=== PATIENT | female | born 1940 | race Caucasian/White ===

== ENCOUNTER 2017-06-11 16:42 | Inpatient (IN) | payer MEDICARE, OTHER ==
[2017-06-15] MEDS ORDERED: Fentanyl 100 MCG/2 ML VIAL ONE ×3 (09:18→13:28)
[2017-06-15 09:37] LABS: #Basophils 0.1 thou/uL (0.0-0.2); #Eosinphils 0.2 thou/uL (0.0-0.7); #Lymphocytes 1.3 thou/uL (1.20-3.40); #Monocytes 0.4 thou/uL (0.11-0.59); #Neutrophils 6.6 thou/uL (1.40-6.50); %Basophils 0.7 % (0.0-1.0); %Eosinophils 1.9 % (0.0-10.0); %Lymphocytes 15.4 % (21.0-51.0); Hemoglobin 13.8 g/dL (12.0-16.0); Mean Corpuscular HGB CONC 32.7 g/dL (32.0-36.0); Mean Corpuscular Hemoglobin 29.2 pg (27.0-31.0); Mean Corpuscular Volume 89.2 fl (81.0-99.0); Mean Platelet Volume 7.5 fL (7.4-10.4); Platelet Count 160 thou/uL (130-400); RBC Distribution Width 13.1 % (11.5-14.5); Red Blood Cell (RBC) Count 4.73 mill/uL (4.20-5.40); White Blood Cell (WBC) Count 8.6 thou/uL (4.8-10.8)
[2017-06-15 09:41] LABS: Anion Gap 13 mmol/L (10-20); BUN (Urea Nitrogen) 20 mg/dL (9.8-20.1); Calc. Creatinine Clearance 63 mL/min (70-130); Calcium 10.4 mg/dL (7.8-10.44); Carbon Dioxide 29 mmol/L (23-31); Chloride 101 mmol/L (98-107); Estimated GFR-MDRD 62; Glucose 166 mg/dL (83-110); Potassium 4.2 mmol/L (3.5-5.1); Sodium 139 mmol/L (136-145)
[2017-06-15] MEDS ORDERED: Midazolam HCl 2 mg/2 ml Vial ONE (09:47)
[2017-06-15] MEDS ORDERED: CEFAZOLIN/Water 2 GM/20 ML SYRINGE ONE (09:50)
[2017-06-15] MEDS ORDERED: diphenhydrAMINE 25 MG CAP PO PRN (10:30)
[2017-06-15] MEDS ORDERED: Fentanyl/Bupivacaine 250 ML in Premix Bag 1 BAG EPIDURAL SCH (10:30)
[2017-06-15] MEDS ORDERED: Promethazine HCl 25 MG SUPP PR PRN (10:30)
[2017-06-15] MEDS ORDERED: diphenhydrAMINE 50 MG/ML VIAL IM PRN (10:30)
[2017-06-15] MEDS ORDERED: diphenhydrAMINE 50 MG/ML VIAL IVP PRN (10:30)
[2017-06-15] MEDS ORDERED: Naloxone HCl 0.4 mg/ml Vial IV PRN (10:30)
[2017-06-15] MEDS ORDERED: Zolpidem Tartrate 5 MG TAB PO PRN (10:30)
[2017-06-15] MEDS ORDERED: Eucerin (Mineral Oil/Petrolatum,White) 30 gm Jar TOP PRN (10:30)
[2017-06-15] MEDS ORDERED: Naloxone HCl 0.4 mg/ml Vial IVP PRN (10:30)
[2017-06-15] MEDS ORDERED: HYDROcodone/Acetaminophen 5/325 mg Tablet PO PRN ×3 (10:30→14:54)
[2017-06-15] MEDS ORDERED: traMADol HCl 50 MG TAB PO PRN ×2 (10:30)
[2017-06-15] MEDS ORDERED: Promethazine HCl 25 MG/ML VIAL IM PRN ×3 (10:30→14:54)
[2017-06-15] MEDS ORDERED: [UNRECOGNIZED DRUG - REMARK] FS SCH (10:30)
[2017-06-15] MEDS ORDERED: Bupivacaine 0.25% HCL 30 ML VIAL ONE (10:39)
--- NOTE | 2017-06-15 13:11 | OP ---
PREOPERATIVE DIAGNOSIS: Left lower lobe carcinoma. POSTOPERATIVE DIAGNOSIS: Left lower lobe carcinoma. PROCEDURE: Left thoracotomy with superior segmentectomy left lower lobe. SURGEON: Farhat Finney M.D. ANESTHESIA: General. ESTIMATED BLOOD LOSS: Less than 100 mL. PROCEDURE IN DETAIL: After adequate anesthesia had been obtained, the patient was placed in the righ t lateral decubitus position, prepped and draped. Chest was entered through a right posterolateral m uscle sparing thoracotomy fifth intercostal space. Adhesions between the upper lobe and the chest wa ll were taken down as well as the inferior pulmonary ligament. The tumor was identified. Dissection in the major fissure was then performed dissecting out the pulmonary arterial branch to the superior segment which was divided with vascular stapler. Following this, the venous supply was encircled to the superior segment. The superior segmental bronchus was then divided with the stapler. Following this, green staple load was used to complete the segmentectomy. Following this, the lung was inflat ed in all segments and remaining lower lobe ventilated nicely. The specimen was sent for frozen sect ion and margins were clear. Two chest tubes were then placed. The L4 region was then dissected out and there was only one significant node and this was harvested. There were no nodes in the inferior pulmonary ligament or in the paraesophageal area that were visible. Following this, the ribs were r eapproximated with 2 pericostal sutures and then the muscle layers were reapproximated as well as the skin. The patient is to be taken to the recovery room in guarded condition.
[2017-06-15] MEDS ORDERED: Meperidine HCl/PF 25 MG/ML VIAL SLOW IVP PRN (13:16)
[2017-06-15] MEDS ORDERED: Promethazine HCl 25 MG/ML VIAL SLOW IVP PRN (13:16)
[2017-06-15] MEDS ORDERED: Ondansetron HCl/PF 4 MG/2 ML Vial IVP PRN ×2 (13:16→14:54)
[2017-06-15] MEDS ORDERED: Dextrose 5% in Water 1,000 ML IV PRN (13:48)
[2017-06-15] MEDS ORDERED: HumaLOG 300 UNITS/3 ML VIAL SC PRN (13:48)
[2017-06-15] MEDS ORDERED: Dextrose 50% Abboject 50 ML SYRINGE SLOW IVP PRN (13:48)
[2017-06-15] MEDS ORDERED: Fentanyl 100 MCG/2 ML VIAL SLOW IVP PRN (14:54)
[2017-06-15] MEDS ORDERED: Phenylephrine 10 MG/NS 250 ML 250 ML IVPB PRN (14:54)
[2017-06-15] MEDS ORDERED: niCARdipine HCl 25 MG in Sodium Chloride 0.9% 250 ML 240 ML IVPB PRN (14:54)
--- NOTE | 2017-06-15 15:53 | RAD ---
PORTABLE CHEST ONE VIEW 06/15/17 at 1409 hours HISTORY: Thoracotomy. FINDINGS/IMPRESSION: Comparison made to exam of 04/07/17. There are two left sided chest tubes. No definite pneumothorax is seen. There is subcutaneous emphyse ma in the left lower neck and chest wall. The right lung is clear. The heart size is stable. The aort a is tortuous. POS: OFF
[2017-06-15] MEDS: Sodium Chloride 0.9% 1,000 ML IV SCH (15:56)
[2017-06-15] MEDS ORDERED: niCARdipine 20MG In NaCl 20 MG/200 ML BAG IVPB SCH (16:00)
[2017-06-15 16:09] VITALS: BMI 26.5
[2017-06-15] MEDS ORDERED: Glycopyrrolate 0.2 MG/ML 5 ML SYRINGE ONE (17:20)
[2017-06-15] MEDS ORDERED: Lidocaine 1% PF 5 ML VIAL ONE (17:20)
[2017-06-15] MEDS ORDERED: Propofol 200 MG/20 ML VIAL ONE (17:20)
[2017-06-15] MEDS ORDERED: ePHEDrine/0.9% NaCl/PF SYRINGE 50 mg/10 ml ONE (17:20)
[2017-06-15] MEDS ORDERED: PHENYLEPHRINE-NS 100 MCG/ML 10 ML SYRINGE ONE (17:20)
[2017-06-15] MEDS: Ketorolac Tromethamine 30 MG/ML VIAL IVP SCH ×2 (17:34→17:35)
[2017-06-15] MEDS: CEFAZOLIN/Water 2 GM/20 ML SYRINGE SLOW IVP SCH (17:35)
[2017-06-15] MEDS: Ondansetron HCl/PF 4 MG/2 ML Vial IVP PRN (17:41)
[2017-06-16] MEDS: Ketorolac Tromethamine 30 MG/ML VIAL IVP SCH ×5 (01:02→23:02)
[2017-06-16] MEDS: CEFAZOLIN/Water 2 GM/20 ML SYRINGE SLOW IVP SCH ×2 (01:03→09:46)
[2017-06-16 05:06] LABS: #Lymphocytes 0.8 thou/uL (1.20-3.40); #Monocytes 0.6 thou/uL (0.11-0.59); #Neutrophils 9.8 thou/uL (1.40-6.50); %Eosinophils 0.1 % (0.0-10.0); %Lymphocytes 7.4 % (21.0-51.0); %Monocytes 4.9 % (0.0-10.0); %Neutrophils 87.6 % (42.0-75.0); Hemoglobin 11.8 g/dL (12.0-16.0); Mean Corpuscular HGB CONC 32.7 g/dL (32.0-36.0); Mean Corpuscular Hemoglobin 29.4 pg (27.0-31.0); Mean Corpuscular Volume 89.7 fl (81.0-99.0); Mean Platelet Volume 7.8 fL (7.4-10.4); Platelet Count 150 thou/uL (130-400); Red Blood Cell (RBC) Count 4.03 mill/uL (4.20-5.40); White Blood Cell (WBC) Count 11.2 thou/uL (4.8-10.8)
[2017-06-16 05:20] LABS: Anion Gap 13 mmol/L (10-20); BUN (Urea Nitrogen) 23 mg/dL (9.8-20.1); Calc. Creatinine Clearance 62 mL/min (70-130); Calcium 8.8 mg/dL (7.8-10.44); Carbon Dioxide 26 mmol/L (23-31); Chloride 102 mmol/L (98-107); Estimated GFR-MDRD 58; Glucose 169 mg/dL (83-110); Potassium 4.4 mmol/L (3.5-5.1); Sodium 137 mmol/L (136-145)
--- NOTE | 2017-06-16 08:50 | RAD ---
PORTABLE CHEST: History: Post op thoracotomy. FINDINGS: Left sided chest tubes are in place, the lower left chest tube has retracted and the side hole is pro bably outside of the chest cavity. The chest tube in the left lung apex is unchanged in position. No other interval change in the appearance of the chest. The left lung remains expanded. IMPRESSION: Interval retraction of the lower left chest tube, otherwise stable exam. POS: [facility]
--- NOTE | 2017-06-16 09:11 | CON ---
DATE OF CONSULTATION: 06/16/2017 This woman was recently identified as having a lung mass. Surgery is scheduled. It was not felt that she would tolerate a lobectomy so she has undergone segme nt resection (left superior segment of the left lower lobe). Surgery went well. She denies having p ain. I am consulting because of her presence in the Critical Care Unit because Dr. Herr follows her. PAST MEDICAL HISTORY: 1. Remarkable for chronic obstructive pulmonary disease. 2. History of thyroidectomy for toxic nodular goiter. 3. History of hypertension. 4. History of lipid disorder. 5. History of reflux disease. 6. History of vitamin D deficiency. 7. History of anxiety and depression. 8. History of a hysterectomy with a salpingo-oophorectomy. 9. History of tonsillectomy at the same time she had a thyroidectomy, I believe. FAMILY HISTORY: Positive for hypertension, heart disease, lipid disorder. SOCIAL HISTORY: She is a . She is a smoker, half pack a day, was a smoker, half pack a day in the past. She is not a daily drinker. She uses no drugs. ALLERGIES: She has no drug allergies. REVIEW OF SYSTEMS: Actually, surprisingly is negative. She denies shortness of breath. She denies chest discomfort. She says she actually feels fine. She was worried about having a lot of chest jamia n and was told that she would, but says that she has absolutely no discomfort at all which is a pleas ant surprise for her. Review of systems of systems 10-point is otherwise negative. PHYSICAL EXAMINATION: VITAL SIGNS: Heart rate 87, respiratory rate 17, oximetry is 91, blood pressure 130/57. HEENT: Pupils are equal. Sclerae is anicteric. NECK: Supple. LUNGS: Clear. HEART: Regular rhythm. S1 and S2 are normal. ABDOMEN: Soft and nontender. EXTREMITIES: Without clubbing, cyanosis, or edema. LABORATORY DATA: White count 11.2, hemoglobin 11.8, platelets 150. Sodium 137, potassium 4.4, chlor arabella 102, bicarb 26, BUN 23, creatinine 0.94, glucose 169. Intake and output is negative 269. IMPRESSION: 1. Status post resection of the superior segment of the left lower lobe. Pathology is pending. She appears to be doing well. 2. Underlying obstructive lung disease, doing well with the nebulizer treatments. She has no bronch ospasm clinically at this time and no complaints of shortness of breath. PLAN: Chest tube drainage per Surgery. We will gradually increase her out of bed time, start walkin g when Dr. Finney feels it is appropriate. This is a 50 minute consult, greater than 50% of the time was spent reviewing records, radiographs on the unit, reviewing plan of care with staff.
[2017-06-16] MEDS: Sodium Chloride 0.9% 1,000 ML IV SCH (09:46)
[2017-06-16] MEDS ORDERED: ALPRAZolam 0.25 MG TAB PO PRN (10:34)
[2017-06-16] MEDS ORDERED: metFORMIN 500 MG TAB PO SCH (10:45)
[2017-06-16] MEDS ORDERED: Levothyroxine Sodium 75 MCG TAB PO SCH (11:00)
[2017-06-16] MEDS: metFORMIN 500 MG TAB PO SCH (16:59)
[2017-06-16] MEDS: Carvedilol 6.25 MG TAB PO SCH ×2 (20:28→22:57)
[2017-06-16] MEDS: Simvastatin 5 MG TAB PO SCH (20:29)
[2017-06-16] MEDS: SODIUM CHLORIDE 0.9% EPIDURAL SCH (21:49)
[2017-06-16] MEDS: BUPIVACAINE 0.75% EPIDURAL SCH (21:49)
[2017-06-16] MEDS: FENTANYL EPIDURAL SCH (21:49)
[2017-06-16] MEDS ORDERED: Digoxin 0.5 MG/2 ML AMP SLOW IVP SCH (23:30)
[2017-06-17] MEDS ORDERED: Digoxin 0.5 MG/2 ML AMP SLOW IVP SCH (02:00)
[2017-06-17] MEDS: Ketorolac Tromethamine 30 MG/ML VIAL IVP SCH (05:58)
[2017-06-17] MEDS: Levothyroxine Sodium 75 MCG TAB PO SCH (05:59)
[2017-06-17] MEDS: Carvedilol 6.25 MG TAB PO SCH ×2 (08:22→22:27)
[2017-06-17] MEDS: Aspirin 325 MG TAB PO SCH (08:22)
[2017-06-17] MEDS: Polyethylene Glycol 3350 17 GM Packet PO SCH (08:22)
[2017-06-17] MEDS: metFORMIN 500 MG TAB PO SCH ×2 (08:22→17:40)
--- NOTE | 2017-06-17 08:24 | RAD ---
PORTABLE CHEST 1 VIEW: DATE: 06/17/17. TIME: 6:52 a.m. HISTORY: Postop thoracotomy. FINDINGS: The 2 left-sided chest tube positions are unchanged. No definite pneumothorax is seen. The inferior left chest tube side hole may be outside the chest cavity. The heart size is stable. The aorta is tortuous. There is mild pulmonary vascular congestion. POS: [facility]
[2017-06-17] MEDS ORDERED: Lisinopril 10 MG TAB PO SCH (09:00)
--- NOTE | 2017-06-17 17:50 | CON ---
DATE OF CONSULTATION: 06/17/2017. REASON FOR CONSULTATION: Atrial fibrillation, rapid ventricular response. PRIMARY ICE CREAM SCOOPER: Main Hernandez MD HISTORY OF PRESENT ILLNESS: Ms. Martinez is a very pleasant 76-year-old white female who comes to the hospital for a planned lobectomy on the left lung due to a tumor. This was performed on the 2nd and she did well postoperatively, but she developed atrial fibrillation. She was transferred to [facility]. She spontaneously converted back to sinus rhythm with some IV doses [facility] She has remained in sinus ever since. She does not have a history of atrial fibrillation. She did not feel her atrial fibrillation. Her heart rates were in the 130s. Currently, she denies any fluttering, any syncope, or presyncope. PAST MEDICAL HISTORY: 1. COPD. 2. Thyroidectomy secondary to toxic nodular goiter. 3. Hypertension. 4. Hyperlipidemia. 5. Gastroesophageal reflux disease. 6. Vitamin D deficiency. 7. Anxiety and depression. PAST SURGICAL HISTORY: 1. Hysterectomy with salpingo-oophorectomy. 2. Tonsillectomy. 3. Left lobectomy as above. FAMILY HISTORY: Early heart disease. SOCIAL HISTORY: Used to smoke half a pack a day, but she is not smoking anymore, stopped about a yea r ago. No drug or alcohol use. ALLERGIES: No known drug allergies. OUTPATIENT MEDICATIONS: 1. Metformin. 2. Lisinopril 20 mg a day. 3. Carvedilol 25 mg b.i.d. 4. Aspirin 325 a day. 5. Norvasc 5 mg every day. 6. Alprazolam. 7. Pravastatin 20 mg at bedtime. 8. Synthroid 75 mcg a day. ALLERGIES: No known drug allergies. REVIEW OF SYSTEMS: A 12-point review of systems was done and is all negative unless stated in the hi story of present illness. PHYSICAL EXAMINATION: VITAL SIGNS: Temperature 98.7, pulse 81, respiratory rate 18, saturating 97% on 2 liters, blood pres sure 152/70. GENERAL: Awake, alert, oriented x3, in no distress. HEENT: Normocephalic, atraumatic. NECK: Supple. LUNGS: Have reduced breath sounds bilaterally. On the left side, the chest tubes are in place. ABDOMEN: Soft. Positive bowel sounds. EXTREMITIES: No edema. SKIN: Warm and dry. LABORATORY WORK: Reviewed. White count of 8.6, hemoglobin of 13, hematocrit 42, platelet count 160. Chemistries, last chemistry was yesterday morning with a sodium of 137, potassium of 4.4, BUN of 23 , creatinine 0.94, calcium was 8.8. EKG was reviewed. AFib with RVR, converted to sinus earlier this morning. ASSESSMENT AND PLAN: 1. Postoperative atrial fibrillation. Most likely related to left-sided lobectomy. This is the fir st and this never happened. She is currently in sinus only on a beta jaky. We would continue the Coreg at current dose for now. She had an echocardiogram recently at the office about 2 weeks ago a nd she had normal LV function and just a slightly larger than normal left atrium. I would recommend against anticoagulation at this time given the chest tubes are in and this is most likely just relate d to the surgery. If she ever recurs in the future, she will be a candidate for full anticoagulation ; however, we will have to document this and she will need an event monitor at some time in the futur e. 2. Continue other medications otherwise. 3. Thank you for letting us to participate in the care of your patient. We will follow.
[2017-06-17] MEDS: Simvastatin 5 MG TAB PO SCH (22:27)
[2017-06-17] MEDS: Enoxaparin Sodium 40 MG/0.4 ML SYRINGE SC SCH (22:28)
[2017-06-18] MEDS: FENTANYL EPIDURAL SCH (05:26)
[2017-06-18] MEDS: BUPIVACAINE 0.75% EPIDURAL SCH (05:26)
[2017-06-18] MEDS: SODIUM CHLORIDE 0.9% EPIDURAL SCH (05:26)
[2017-06-18] MEDS: Levothyroxine Sodium 75 MCG TAB PO SCH (07:31)
[2017-06-18] MEDS: Aspirin 325 MG TAB PO SCH (08:02)
[2017-06-18] MEDS: Lisinopril 10 MG TAB PO SCH ×2 (08:02→21:17)
[2017-06-18] MEDS: metFORMIN 500 MG TAB PO SCH ×2 (08:02→16:40)
[2017-06-18] MEDS: Polyethylene Glycol 3350 17 GM Packet PO SCH (08:03)
[2017-06-18] MEDS: Carvedilol 25 MG TAB PO SCH ×2 (08:03→21:16)
--- NOTE | 2017-06-18 08:45 | RAD ---
RADIOGRAPH CHEST 1 VIEW: Date: 06-18-17 Time: 6:57 a.m. HISTORY: 76-year-old female status post left thoracotomy. COMPARISON: 06-17-17 at 6:52 a.m. FINDINGS: The two left sided chest tubes, one with distal tip near the apex and the other with distal tip overl chandler left lower lung zone, remain unchanged in position. No pneumothorax is visible. New finding of m ild blunting of the right lateral costophrenic angle suggestive of new small right pleural effusion. Prominent interstitial markings at right base. No meche pulmonary alveolar edema. IMPRESSION: 1. Two left sided chest tubes remain. 2. No pneumothorax visualized. 3. Interval development of small right pleural effusion and mild worsening of aeration at right lung base. BEATRIZ POS: [facility]
--- NOTE | 2017-06-18 15:20 | PDOC.CTH ---
Cardiology Progress Note - Subjective No new issues. Remains in sinus. - Objective Vital Signs Temp Pulse Resp BP BP Pulse Ox 06/18/17 12:35 97.7 F 77 20 139/69 94 L 06/18/17 10:02 79 132/61 06/18/17 08:02 200/83 H 06/18/17 08:00 98.8 F 90 18 200/83 H 92 L 06/18/17 06:29 94 L 06/18/17 04:30 93 L 06/18/17 04:00 98.8 F 88 18 186/78 H 93 L Weight 172 lb 6.4 oz 06/17/17 06/18/17 06/19/17 06:59 06:59 06:59 Intake Total 1674.2 1420 Output Total 170 1800 175 Balance 1504.2 -380 -175 - Physical Examination General/Neuro: alert & oriented x3, NAD Neck: no JVD present Lungs: unlabored respirations Heart: RRR Abdomen: NT/ND Extremities: other: (no edema.) - Telemetry Telemetry Rhythm: NSR - Labs Result Diagrams: 06/16/17 04:06 06/16/17 04:06 - Assessment/Plan 1. Post op afib 2. Lung Ca s/p left lobe resection. 3. Possible breast Ca PLAN: - Continue BB alone, If she recurs would start amiodarone drip and load.
[2017-06-18] MEDS: hydrALAZINE 20 MG/ML VIAL SLOW IVP PRN (17:41)
[2017-06-18] MEDS: Simvastatin 5 MG TAB PO SCH (21:15)
[2017-06-18] MEDS: Enoxaparin Sodium 40 MG/0.4 ML SYRINGE SC SCH (21:17)
[2017-06-19] MEDS: Levothyroxine Sodium 75 MCG TAB PO SCH (06:19)
[2017-06-19] MEDS ORDERED: Furosemide 40 MG TAB PO SCH (08:00)
[2017-06-19] MEDS ORDERED: Magnesium Citrate 300 ML BOT PO SCH (08:30)
[2017-06-19] MEDS ORDERED: Bisacodyl 5 MG TAB PO SCH (08:30)
--- NOTE | 2017-06-19 09:30 | RAD ---
FRONTAL VIEW CHEST: COMPARISON: Previous day. INDICATION: Thoracotomy procedure, followup evaluation. FINDINGS: Left chest tubes remain. There are leads overlying the chest limiting detail. Bilateral interstitial opacities are present within each lung. There is a patchy density at the righ t lateral lung base. There is enlargement of the pulmonary vasculature, similar in appearance. IMPRESSION: Slight progression with regard to parenchymal opacification notably at right lung base. This could r elate to a developing area of atelectasis or pneumonitis. Continued followup is warranted. POS: [facility]
[2017-06-19] MEDS: metFORMIN 500 MG TAB PO SCH ×3 (10:04→18:11)
[2017-06-19] MEDS: Aspirin 325 MG TAB PO SCH ×2 (10:04→10:06)
[2017-06-19] MEDS: Lisinopril 10 MG TAB PO SCH ×2 (10:06→20:29)
[2017-06-19] MEDS: Polyethylene Glycol 3350 17 GM Packet PO SCH (10:06)
[2017-06-19] MEDS: Carvedilol 25 MG TAB PO SCH ×2 (10:07→20:29)
[2017-06-19] MEDS: HYDROcodone/Acetaminophen 5/325 mg Tablet PO PRN ×2 (13:09→20:30)
[2017-06-19] MEDS: Enoxaparin Sodium 40 MG/0.4 ML SYRINGE SC SCH (20:29)
[2017-06-19] MEDS: Simvastatin 5 MG TAB PO SCH (20:29)
[2017-06-20] MEDS: Levothyroxine Sodium 75 MCG TAB PO SCH (05:58)
[2017-06-20] MEDS: HYDROcodone/Acetaminophen 5/325 mg Tablet PO PRN ×3 (07:05→20:37)
[2017-06-20] MEDS: Amlodipine 5 MG TAB PO SCH (09:21)
[2017-06-20] MEDS: metFORMIN 500 MG TAB PO SCH ×2 (09:22→17:46)
[2017-06-20] MEDS: Carvedilol 25 MG TAB PO SCH ×2 (09:22→20:34)
[2017-06-20] MEDS: Lisinopril 10 MG TAB PO SCH ×2 (09:22→20:33)
[2017-06-20] MEDS: Aspirin 325 MG TAB PO SCH (09:22)
[2017-06-20] MEDS: Polyethylene Glycol 3350 17 GM Packet PO SCH (09:23)
[2017-06-20] MEDS: Simvastatin 5 MG TAB PO SCH (20:33)
[2017-06-20] MEDS: Enoxaparin Sodium 40 MG/0.4 ML SYRINGE SC SCH (20:34)
[2017-06-21] MEDS ORDERED: Sodium Chloride 0.9% 10 ML ONE ×2 (01:06→02:54)
[2017-06-21] MEDS: hydrALAZINE 20 MG/ML VIAL SLOW IVP PRN (01:09)
[2017-06-21] MEDS: Ondansetron HCl/PF 4 MG/2 ML Vial IVP PRN (02:58)
[2017-06-21] MEDS: Levothyroxine Sodium 75 MCG TAB PO SCH (05:53)
[2017-06-21] MEDS: Carvedilol 25 MG TAB PO SCH (07:58)
[2017-06-21] MEDS: Amlodipine 5 MG TAB PO SCH (07:58)
[2017-06-21] MEDS: metFORMIN 500 MG TAB PO SCH (07:58)
[2017-06-21 08:01] VITALS: BP 146/65
[2017-06-21] MEDS: Aspirin 325 MG TAB PO SCH (08:01)
[2017-06-21] MEDS: Lisinopril 10 MG TAB PO SCH (08:01)
[2017-06-21] MEDS: Polyethylene Glycol 3350 17 GM Packet PO SCH (08:01)
--- NOTE | 2017-06-21 09:20 | DIS ---
HOSPITAL COURSE: The patient was admitted on 06/15/2017 where she underwent a superior segmentectomy of the left lower lobe with node dissection. 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 Two hilar lymph nodes were negative for metastatic d isease. She had a mediastinal node that was also negative for metastatic disease. Her postoperative course was notable for no air leak. Her pain control was not a problem and she actually experienced only aching with no pain. She had a bowel movement prior to discharge. She will resume her home me dications. Her sugars were variable from 110-180 on her admitting dose of metformin. Incision was h ealing nicely. Chest tubes were removed on 06/19/2017. She will follow up with Dr. Duckworth later t his week and will need an outpatient mammogram for a left breast mass. She will follow up with me in 2-3 weeks with a chest x-ray. Discharge and follow up instructions were given.
[2017-06-21 09:51] VITALS: TEMP 98.4
--- NOTE | 2017-06-24 19:27 | EKG ---
Test Reason : PREOP Blood Pressure : / mmHG Vent. Rate : 071 BPM Atrial Rate : 071 BPM P-R Int : 122 ms QRS Dur : 086 ms QT Int : 406 ms P-R-T Axes : 073 066 062 degrees QTc Int : 441 ms Normal sinus rhythm Normal ECG No previous ECGs available Confirmed by ONDINA COOK (2) on 06/24/2017 7:27:11 PM Referred By: YSABEL Confirmed By:ONDINA COOK
--- NOTE | 2017-06-24 19:34 | EKG ---
Test Reason : STAT Blood Pressure : / mmHG Vent. Rate : 116 BPM Atrial Rate : 104 BPM P-R Int : 000 ms QRS Dur : 086 ms QT Int : 324 ms P-R-T Axes : 000 069 070 degrees QTc Int : 450 ms Atrial fibrillation with rapid ventricular response Abnormal ECG When compared with ECG of 15-JUN-2017 09:29, (Unconfirmed) Atrial fibrillation has replaced Sinus rhythm Vent. rate has increased BY 45 BPM Confirmed by ONDINA COOK (2) on 06/24/2017 7:33:51 PM Referred By: YSABEL Confirmed By:ONDINA COOK
== END 2017-06-21 11:53 | disposition home or self-care (01) | DRG 165 ==
LOC: SURG A 06-15 06:45 → CCU 06-15 14:48 → SURG A 06-16 14:01 → 2NO 06-17 00:40
PROVIDERS: ADMIT Thoracic Surgery (Cardiothoracic Vascular Surgery); ATTEND Thoracic Surgery (Cardiothoracic Vascular Surgery)
PROC: 0BTJ0ZZ Resection of Left Lower Lung Lobe, Open Approach (ICD-10-PCS; principal; 2017-06-15)
PROC: 07B70ZX Excision of Thorax Lymphatic, Open Approach, Diagnostic (ICD-10-PCS; 2017-06-15)
DX: C34.32 Malignant neoplasm of lower lobe, left bronchus or lung (principal); I48.91 Unspecified atrial fibrillation; E11.9 Type 2 diabetes mellitus without complications; J44.9 Chronic obstructive pulmonary disease, unspecified; K21.9 Gastro-esophageal reflux disease without esophagitis; I10 Essential (primary) hypertension; Z87.891 Personal history of nicotine dependence; Z79.82 Long term (current) use of aspirin; M10.9 Gout, unspecified; Z79.84 Long term (current) use of oral hypoglycemic drugs; E03.9 Hypothyroidism, unspecified; E78.2 Mixed hyperlipidemia
CPT/HCPCS: 36415; 36416; 71045; 80048; 85025; 86850; 86900; 86901; 88305; 88309; 88313; 88331; 88332; 88341; 88342; 93005; 93010; 94640; A4216; G8978-GP-CJ; G8979-GP-CJ; G8980-GP-CJ; J0131; J0360; J1160; J1200; J1642; J1650; J1885; J2001; J2250; J2405; J2704; J3010; J7050; J7620; S0020

== ENCOUNTER 2017-07-13 12:50 | Outpatient (CLI) | payer MEDICARE | END 2017-07-13 12:51 | disposition home or self-care (01) | LOC: BICMAMMO 12:50 | PROVIDERS: ATTEND Thoracic Surgery (Cardiothoracic Vascular Surgery) | DX: Z12.31 Encounter for screening mammogram for malignant neoplasm of breast (principal); R05 Cough; J90 Pleural effusion, not elsewhere classified; Z80.3 Family history of malignant neoplasm of breast | CPT/HCPCS: 71046; 77063; 77067 ==

== ENCOUNTER 2017-08-03 12:05 | Outpatient (CLI) | payer MEDICARE | END 2017-08-03 12:06 | disposition home or self-care (01) | LOC: BICMAMMO 12:05 | PROVIDERS: ATTEND Specialist | DX: N63.21 Unspecified lump in the left breast, upper outer quadrant (principal); Z80.3 Family history of malignant neoplasm of breast | CPT/HCPCS: 19100; 76642; 76942; 88305; G0206; G0279 ==

== ENCOUNTER 2017-09-06 13:42 | Outpatient (CLI) | payer MEDICARE ==
[2017-09-06 15:34] LABS: #Eosinphils 0.2 thou/uL (0.0-0.7); #Lymphocytes 1.4 thou/uL (1.20-3.40); #Monocytes 0.4 thou/uL (0.11-0.59); #Neutrophils 2.6 thou/uL (1.40-6.50); %Basophils 0.5 % (0.0-1.0); %Lymphocytes 31.1 % (21.0-51.0); %Monocytes 7.9 % (0.0-10.0); %Neutrophils 56.5 % (42.0-75.0); Mean Corpuscular HGB CONC 33.4 g/dL (32.0-36.0); Mean Corpuscular Hemoglobin 28.6 pg (27.0-31.0); Mean Corpuscular Volume 85.6 fl (81.0-99.0); Mean Platelet Volume 8.1 fL (7.4-10.4); Platelet Count 135 thou/uL (130-400); Red Blood Cell (RBC) Count 4.54 mill/uL (4.20-5.40); White Blood Cell (WBC) Count 4.6 thou/uL (4.8-10.8)
[2017-09-06 15:53] LABS: Anion Gap 9 mmol/L (10-20); BUN (Urea Nitrogen) 24 mg/dL (9.8-20.1); Calc. Creatinine Clearance 0 mL/min (70-130); Calcium 9.5 mg/dL (7.8-10.44); Carbon Dioxide 29 mmol/L (23-31); Chloride 104 mmol/L (98-107); Estimated GFR-MDRD 69; Glucose 106 mg/dL (83-110); Sodium 138 mmol/L (136-145)
--- NOTE | 2017-09-06 21:38 | EKG ---
Test Reason : Blood Pressure : / mmHG Vent. Rate : 068 BPM Atrial Rate : 068 BPM P-R Int : 132 ms QRS Dur : 090 ms QT Int : 416 ms P-R-T Axes : 074 079 075 degrees QTc Int : 442 ms Normal sinus rhythm Normal ECG When compared with ECG of 16-JUN-2017 23:09, Sinus rhythm has replaced Atrial fibrillation Vent. rate has decreased BY 48 BPM T wave amplitude has increased in Inferior leads Confirmed by Odell DELANEY ([id number]) on 09/06/2017 9:38:26 PM Referred By: JP Confirmed By:Odell DELANEY
== END 2017-09-06 13:43 | disposition home or self-care (01) ==
LOC: LABBT 13:42
PROVIDERS: ATTEND Specialist
DX: Z01.818 Encounter for other preprocedural examination (principal); C50.412 Malignant neoplasm of upper-outer quadrant of left female breast
CPT/HCPCS: 80048; 85025; 93005; 93010

== ENCOUNTER 2017-09-08 07:48 | Day surgery (SDC) | payer MEDICARE ==
[2017-09-08] MEDS ORDERED: Ondansetron HCl/PF 4 MG/2 ML Vial ONE (08:39)
[2017-09-08] MEDS ORDERED: PROPOFOL 200 MG/20 ML VIAL ONE (08:39)
[2017-09-08] MEDS ORDERED: Lidocaine 1% PF 5 ML VIAL ONE (08:39)
[2017-09-08] MEDS ORDERED: diphenhydrAMINE 50 MG/ML VIAL ONE (08:39)
[2017-09-08] MEDS ORDERED: CEFAZOLIN/Water 2 GM/20 ML SYRINGE ONE (09:45)
--- NOTE | 2017-09-08 10:51 | NM ---
LEFT BREAST LYMPHOSCINTIGRAPHY: INDICATION: Left breast cancer. COMPARISON: Left breast ultrasound-guided needle biopsy of 08/05/17 from [facility]. TECHNIQUE: Timeout was performed identifying that the left breast was to receive the injection. The skin surrou nding the nipple-areolar complex of the left breast was cleansed utilizing alcohol swabs. Four separ ate aliquots for a total of 0.4 mCi of Technetium 99m filtered SZ was administered into the subcutane ous tissues surrounding the left nipple in 4 separate quadrants. The nipple-areolar complex was then massaged. Anterior posterior planar images were obtained until there was identification of the 1st draining left anterior axillary lymph node. This was identified and the patient was then transferred to the operative suite for the patient's left breast and left axillary surgical procedure. IMPRESSION: Successful left breast lymphoscintigraphy. POS: [facility]
[2017-09-08] MEDS ORDERED: Sodium Bicarbonate 2.5 MEQ/5 ML VIAL ONE (11:54)
[2017-09-08] MEDS ORDERED: Fentanyl 250 MCG/5 ML VIAL ONE (13:03)
[2017-09-08] MEDS ORDERED: Bupivacaine HCl 0.5%/Epinephrine 1:200,000/PF 30 ml Vial ONE (13:38)
[2017-09-08] MEDS ORDERED: Lidocaine 2% 10 ML INJ ONE (13:38)
[2017-09-08] MEDS ORDERED: Isosulfan Blue 50 MG/5 ML VIAL ONE (13:39)
[2017-09-08] MEDS ORDERED: Bupivacaine/Epinephrine 0.25% 30 ML VIAL ONE (13:41)
--- NOTE | 2017-09-08 15:39 | ULT ---
ULTRASOUND GUIDED LEFT BREAST MASS NEEDLE LOCALIZAITON AND WIRE PLACEMENT: INDICATION: Left breast malignancy. COMPARISON: Left breast diagnostic evaluation from [facility] dated 08/03/17. TECHNIQUE: The left breast mass seen within the posterior left 2 o'clock position was localized. A clip was see n within the lesion. The informed consent was modified for addition of the ultrasound-guided needle localization. The patient initialized the informed consent. The skin overlying the left axillary re gion was prepped and draped in the usual sterile fashion. Buffered 1% Lidocaine was administered to the overlying subcutaneous tissues. Under ultrasound guidance, a 7.5 cm needle and wire were inserte d into the lesion. The tip of the wire projected approximately 1 cm beyond the margin of the mass an d the wire was deployed. The wire and needle construct was then tested and there was no significant withdrawal after deployment of the wire. The needle and wire were then bandaged utilizing a styrofoa m cup and tape. The patient tolerated the procedure without difficulty. IMPRESSION: BIRADS category 6 - Known malignancy. Successful ultrasound-guided needle and wire localization of th e left breast 2 o'clock mass. Findings were called to Dr. Brannon at 12:25 p.m. on 09/08/17. POS: [facility]
--- NOTE | 2017-09-08 15:54 | HP ---
HISTORY OF PRESENT ILLNESS: Suzie Martinez is a 77-year-old female presenting with an abnormal mammogr am with the upper outer quadrant of the left breast mass, status post ultrasound guided biopsy on BIRADS category 5, highly suspicious for malignancy. 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 This mass on ultrasound was 1.6 cm irregular mass wi thout enlarged nodes by ultrasound. Biopsy in the office prior to the ultrasound guided biopsy faile d to reveal any pathology, ultrasound-guided biopsy revealed cancer. Patient has history of left lung cancer resected by Dr. Finney with favorable results. Awaiting Oncol ogy evaluation for both malignancies simultaneously. Patient has a strong family history for breast cancer. Her younger daughter in her early 50s of breast cancer. The patient has two other daug hters, one BRCA positive, undergoing counseling for prophylactic treatment and the other BRCA positiv e undergoing counseling. We submitted BRCA analysis and patient is positive. I discussed with her i n the office prior to BRCA results and then per telephone after BRCA results are received. After con sidering the options for bilateral mastectomies with or without reconstruction versus local treatment , she chose local treatment. She states that her age of 76 with a history of lung cancer that she wo uld rather have local therapy. She has discussed these decision processes with both Dr. Pickens and her primary care physician, Dr. Duckworth. The patient was admitted today for lymphoscintigraphy, sen tinel node biopsy, and partial mastectomy. She understands that there is probably a 30% chance of a recurrent breast cancer in the same breast or other breast in the next 10 years, but she states she w ill undergo close surveillance and keep regular appointments for mammograms and exams. MEDICATIONS: Pravastatin, Synthroid, lisinopril, hydrocodone p.r.n., pravastatin once a day as neede d, Synthroid once a day 75 mcg a day, alprazolam 0.25 mg once a day, metformin 500 mg twice a day, as pirin 325 mg a day, carvedilol 25 mg twice a day, lisinopril 20 mg twice a day, amlodipine 5 mg once a day. PAST MEDICAL HISTORY: Hypothyroidism, hypertension, hyperlipidemia, type 2 diabetes mellitus, histor y of lacunar infarct, left breast cancer. PAST SURGICAL HISTORY: Total hysterectomy and thyroid removed in 2009. FAMILY HISTORY: Significant for breast cancer as noted above. TOBACCO: None. ALCOHOL: None. PHYSICAL EXAMINATION: HEENT: Unremarkable. LUNGS: Clear to auscultation. CARDIAC: Regular rate and rhythm. No murmur or gallop. ABDOMEN: Soft, nontender. No lymphadenopathy in axilla, neck or groins. Both breasts without palpa ble abnormalities, but there is a vague fullness in her upper outer left breast. I cannot clearly de fine the mass demonstrated on ultrasound and biopsied. EXTREMITIES: No ankle edema. Unremarkable. ASSESSMENT AND PLAN: Left breast cancer. PLAN: [place] node biopsy, Lymphazurin blue injection, lymphoscintigraphy, mammographically localiz ation of the breast cancer and partial mastectomy. Risks and benefits as discussed above.
--- NOTE | 2017-09-08 15:54 | MMO ---
MAMMOGRAPHIC IMAGING OF THE SURGICAL SPECIMEN FROM THE LEFT BREAST: COMPARISON: Left [facility] 08/03/17. FINDINGS: The specimen is radiographed using magnification images on a regular standard radiographic unit. The submitted specimen demonstrates a mass with a clip and associated hook. This likely corresponds to the abnormality seen on the left breast diagnostic mammogram. Findings were called to Dr. Brannon in the operating room at 2:58 p.m. on 09/08/17. IMPRESSION: BI-RADS category 6 -Known malignancy- specimen radiograph as above. POS: [facility]
--- NOTE | 2017-09-09 14:11 | OP ---
DATE OF PROCEDURE: 09/08/2017 PREOPERATIVE DIAGNOSES: Left breast upper outer quadrant (near anterior axial line), breast cancer, BRCA positive, history of left lung cancer, status post resection. POSTOPERATIVE DIAGNOSES: Left breast upper outer quadrant (near anterior axial line), breast cancer, BRCA positive, history of left lung cancer, status post resection. PROCEDURES: Lymphoscintigraphy, ultrasound guided needle localization of left breast cancer (nonpalp able), Lymphazurin injection periareolar left, left axillary incision with sentinel node biopsy, Neop robe counts 150, , partial mastectomy, left breast margins marked with reexcision of a new super ficial anterior margin to assure clear margins submitted as separate specimens. SURGEON: Dr. Reggie Brannon. ANESTHESIA: General. Local 0.25% Marcaine with epinephrine 60 mL mixed with 2% Xylocaine, 10 mL. DESCRIPTION OF PROCEDURE: The patient was taken to the operating room where under general LMA anesth esia, left breast and axilla prepared with ChloraPrep and draped in routine fashion. Lymphazurin zakia e had been infiltrated in the periareolar area subdermal 1.5 mL prior to the prep. Localizing wire e ntered the left lateral breast near the axilla and mass located in the anterior axillary line near th e pectoralis border, upper outer quadrant. Single incision was made in the lower left axilla and car ried down to skin and subcutaneous tissue and deep fascia while the localizing wire was dissected berny e from surrounding tissues and partial mastectomy performed excised and the specimen wide margins, ma rking the margins appropriately with sutures. Hemostasis gained with the cautery. The exposed capsu le was close to the anterior superior margin. Thus, new margins excised and submitted with a suture marking the new margin surface and submitted to pathology as separate specimen. Lymphazurin blue arabella ntified and a blue node identified with increased counts of 200 with the Neoprobe and this node was e xcised and an ex vivo counts were 140. The bed of excision was 20 with the Neoprobe once the specime n excised. Hemostasis gained with cautery. Local anesthetic infiltrated to the skin and subcutaneou s tissue about the wound. Subcutaneous tissues approximated with 3-0 Monocryl, skin with subdermal 4 -0 Monocryl and DermaGlue applied after local anesthetic mixture and infiltrative biopsy cavity for p ostoperative pain control.
== END 2017-09-08 17:39 | disposition home or self-care (01) ==
LOC: SDC 07:48
PROVIDERS: ATTEND Specialist
PROC: 0HBU0ZZ Excision of Left Breast, Open Approach (ICD-10-PCS; principal; 2017-09-08)
PROC: 0HBU3ZX Excision of Left Breast, Percutaneous Approach, Diagnostic (ICD-10-PCS; principal; 2017-09-08)
DX: C50.412 Malignant neoplasm of upper-outer quadrant of left female breast (principal); C77.3 Secondary and unspecified malignant neoplasm of axilla and upper limb lymph nodes; Z17.0 Estrogen receptor positive status [ER+]; E89.0 Postprocedural hypothyroidism; I10 Essential (primary) hypertension; E78.5 Hyperlipidemia, unspecified; E11.9 Type 2 diabetes mellitus without complications; Z79.82 Long term (current) use of aspirin; Z79.84 Long term (current) use of oral hypoglycemic drugs; Z79.899 Other long term (current) drug therapy; Z98.890 Other specified postprocedural states; Z80.3 Family history of malignant neoplasm of breast
CPT/HCPCS: 19285; 19301; 38525; 76098; 78195; 88307; 88333; 88342; A9541; Q9968; J0670; J1200; J2001; J2405; J2704; J3010

== ENCOUNTER 2017-10-11 14:36 | Outpatient (CLI) | payer MEDICARE ==
--- NOTE | 2017-10-11 15:19 | RAD ---
RADIOGRAPH CHEST 2 VIEWS: HISTORY: 77-year-old female with C34.32 malignant neoplasm of lower lobe, left bronchus or lung. FINDINGS: There is hyperinflation of the lungs, consistent with COPD. The thoracic aorta is tortuous and ectat ic. There is no evidence of air space density, pneumothorax, or pulmonary edema. There is no cardio megaly or pleural effusion. IMPRESSION: 1) No acute cardiopulmonary findings. 2) Emphysema. 3) Ectasia of thoracic aorta. cocnepcion POS: [facility]
== END 2017-10-11 14:37 | disposition home or self-care (01) ==
LOC: RAD 14:36
PROVIDERS: ATTEND Thoracic Surgery (Cardiothoracic Vascular Surgery)
DX: C34.32 Malignant neoplasm of lower lobe, left bronchus or lung (principal); J43.9 Emphysema, unspecified; I77.810 Thoracic aortic ectasia
CPT/HCPCS: 71046

== ENCOUNTER 2018-02-08 09:16 | Outpatient (CLI) | payer MEDICARE | END 2018-02-08 09:17 | disposition home or self-care (01) | LOC: BICMAMMO 09:16 | PROVIDERS: ATTEND Internal Medicine Hematology & Oncology | DX: Z13.820 Encounter for screening for osteoporosis (principal); Z78.0 Asymptomatic menopausal state; C50.412 Malignant neoplasm of upper-outer quadrant of left female breast; C34.32 Malignant neoplasm of lower lobe, left bronchus or lung; L90.5 Scar conditions and fibrosis of skin; Z80.3 Family history of malignant neoplasm of breast | CPT/HCPCS: 77065; 77080; G0279 ==

== ENCOUNTER 2018-03-22 12:07 | Outpatient (CLI) | payer MEDICARE ==
[2018-03-22 13:09] LABS: #Eosinphils 0.2 thou/uL (0.0-0.7); #Lymphocytes 1.5 thou/uL (1.20-3.40); #Monocytes 0.4 thou/uL (0.11-0.59); #Neutrophils 4.7 thou/uL (1.40-6.50); %Basophils 0.5 % (0.0-1.0); %Eosinophils 2.5 % (0.0-10.0); %Lymphocytes 21.6 % (21.0-51.0); %Monocytes 6.4 % (0.0-10.0); Hemoglobin 14.4 g/dL (12.0-16.0); Mean Corpuscular HGB CONC 33.1 g/dL (32.0-36.0); Mean Corpuscular Hemoglobin 28.9 pg (27.0-31.0); Mean Corpuscular Volume 87.3 fL (78.0-98.0); Mean Platelet Volume 8.4 fL (7.4-10.4); Platelet Count 151 thou/uL (130-400); RBC Distribution Width 13.1 % (11.5-14.5); Red Blood Cell (RBC) Count 4.99 mill/uL (4.20-5.40); White Blood Cell (WBC) Count 6.9 thou/uL (4.8-10.8)
[2018-03-22 13:31] LABS: ALT (SGPT) 12 U/L (8-55); AST (SGOT) 12 U/L (5-34); Albumin 4.4 g/dL (3.4-4.8); Alkaline Phosphatase 84 U/L (40-150); Anion Gap 13 mmol/L (10-20); BUN (Urea Nitrogen) 19 mg/dL (9.8-20.1); Bilirubin, Total 0.4 mg/dL (0.2-1.2); Calc. Creatinine Clearance 0 mL/min (70-130); Calcium 10.1 mg/dL (7.8-10.44); Carbon Dioxide 28 mmol/L (23-31); Chloride 102 mmol/L (98-107); Estimated GFR-MDRD 53; Globulin 2.8 g/dL (2.4-3.5); Glucose 173 mg/dL (83-110); Potassium 4.7 mmol/L (3.5-5.1); Protein, Total 7.2 g/dL (6.0-8.3); Sodium 138 mmol/L (136-145)
== END 2018-03-22 12:08 | disposition home or self-care (01) ==
LOC: LABBT 12:07
PROVIDERS: ATTEND Specialist
DX: Z01.812 Encounter for preprocedural laboratory examination (principal); C50.912 Malignant neoplasm of unspecified site of left female breast; Z17.0 Estrogen receptor positive status [ER+]
CPT/HCPCS: 80053; 85025

== ENCOUNTER 2018-04-06 09:54 | Day surgery (SDC) | payer MEDICARE ==
--- NOTE | 2018-03-22 21:15 | HP ---
HISTORY OF PRESENT ILLNESS: Suzie Martinez is a -pihd-rnn female who lives alone, although stephen delacruz lives nearby. She lives in [place]. Her daughter accompanies her and her daughter lives in [place]. The patient is status post June 16, 2017, left thoracotomy with superior segmentectomy of the left lower lobe and more recently, September 08, 2017, wide local excision, sentinel node biopsy, Lymphazurin injection, partial mastectomy for left breast cancer. The patient is BRCA positive. The patient is followed by Dr. Pickens. 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 The patient at the time of her left suad ast surgery was counseled as to consideration for bilateral mastectomy; however, she declined this. Considering her left lung cancer, this was felt to be reasonable. The patient also declined radiatio n therapy. She last saw Dr. Pickens in December. She has prescribed anastrozole. The patient has spoken with her primary care physician, Dr. Duckworth. The patient does not want to h ave mammograms. She has reconsidered her decision and instead we are planning a left modified radica l mastectomy, right simple mastectomy due to BRCA positive. She does not want reconstruction. She u nderstands the risks and benefits of the procedure and consents. Recent mammograms on February 08, 2018. Left was unremarkable. Followup in 6 months recommended. PAST MEDICAL HISTORY: COPD followed by Dr. Herr, cleared preoperatively previously. Essential hype rtension, type 2 diabetes mellitus, and history of stroke. PAST SURGICAL HISTORY: Left lung resection and left partial mastectomy, dates noted above; total hysterectomy; thyroid remov ed in 2009. Past medical history of hypothyroidism, hypertension, hyperlipidemia, type 2 diabetes me llitus, history of lacunar infarct, left breast cancer, history of left lung cancer, squamous cell ca rcinoma, status post partial lobectomy. MEDICATIONS: Pravastatin, Synthroid, lisinopril, p.r.n. hydrocodone, pravastatin, Synthroid, alprazo pulido, metformin 500 b.i.d., aspirin 325 mg a day, Carvedilol 25 mg twice a day, lisinopril 20 mg twice a day, amlodipine once a day. TOBACCO: None currently, abused in the past, alcohol none. ALCOHOL: None. REVIEW OF SYSTEMS: Ten point noncontributory. PHYSICAL EXAMINATION: VITALS: 177 pounds, inches, 139/62, 71 heart rate, 97.3 degrees. Head, Eyes, Ears, Nose, and Throat: Unremarkable. LUNGS: Clear to auscultation. No wheezing. No rhonchi. CARDIAC: Regular rate and rhythm without murmur or gallop. ABDOMEN: Soft, nontender. EXTREMITIES: Unremarkable. BREASTS: Normal bilaterally. No skin or areolar changes. Breasts are large. There is surgical inc ision in upper outer quadrant left breast, well healed. No palpable masses. Axilla without masses. ASSESSMENT AND PLAN: 1. BRCA positive, recent history of breast cancer this year, staging as above. Agree with plans. I think, it is reasonable to proceed with bilateral mastectomies, left modified radical and right simp le mastectomy. This could be done under general anesthesia with or without regional adjunct to help with postoperative pain. Risk of infection, bleeding, reoperation discussed. Possibility of recurre nt breast cancer even after mastectomy discussed. 2. Chronic obstructive pulmonary disease, prior tobacco abuse, none currently. DuoNeb preoperativel y. 3. Diabetes mellitus. 4. Hypertension. The patient's daughter will be able to help her at home and we will plan outpatien t surgery.
[2018-04-06] MEDS ORDERED: Ketorolac Tromethamine 30 MG/ML VIAL ONE (10:33)
[2018-04-06] MEDS ORDERED: CEFAZOLIN/Water 2 GM/20 ML SYRINGE ONE (10:33)
[2018-04-06] MEDS ORDERED: Midazolam HCl 2 mg/2 ml Vial ONE (13:35)
[2018-04-06] MEDS ORDERED: Fentanyl 100 MCG/2 ML VIAL ONE ×2 (13:35→14:32)
[2018-04-06] MEDS ORDERED: Glycopyrrolate 0.2 MG/ML 5 ML SYRINGE ONE (14:20)
[2018-04-06] MEDS ORDERED: Ondansetron PF 4 MG/2 ML Vial ONE (14:20)
[2018-04-06] MEDS ORDERED: PROPOFOL 200 MG/20 ML VIAL ONE (14:20)
[2018-04-06] MEDS ORDERED: ePHEDrine/0.9% NaCl/PF SYRINGE 50 mg/10 ml ONE (14:20)
--- NOTE | 2018-04-06 17:12 | OP ---
DATE OF SERVICE: 04/06/2018 PREOPERATIVE DIAGNOSES: Left breast cancer, T2 N1A (6 mm focus with sentinel node) M0 stage IIB left breast cancer, history of lung cancer, squamous cell carcinoma, T2 N0 M0, BRCA positive, desires easton ateral mastectomies. POSTOPERATIVE DIAGNOSIS: Left breast cancer, T2 N1A (6 mm focus with sentinel node) M0 stage IIB lef t breast cancer, history of lung cancer, squamous cell carcinoma, T2 N0 M0, BRCA positive, desires bi lateral mastectomies. PROCEDURE: Right simple mastectomy, left modified radical mastectomy, axillary nodes apex dissection marked with clips. SURGEON: Reggie Brannon M.D. ANESTHESIA: General. DRAINS: Two DREW 19 gold drains each side. ESTIMATED BLOOD LOSS: 128 mL BLOOD TRANSFUSED: None. PROCEDURE IN DETAIL: Patient was taken to the operating room where under general anesthesia, chest, axilla, breast prepared with ChloraPrep, draped in routine fashion. Attention was then turned on the right side and then subsequently to the left. Elliptical incision made, oriented transversely obliq uely medially into the axillary and with elliptical clips, elliptical block of skin removed, removing the nipple and areolar complex using the plasma blade flaps dissected free, carried circumferentiall y superiorly to the clavicle, medially to the sternum, inferior to the abdominal wall musculature, la terally to the latissimus dorsi and mastectomy carried out with plasma blade, dissecting it free from the pectoralis fascia lateral chest wall, preserving the long thoracic thoracodorsal nerves, perform simple mastectomy. Hemostasis gained with cautery after irrigating the wound. Two #19 gold d rains placed through separate inferior stabs, secured with 3-0 nylon sutures each and sterile dressin gs applied. Subcutaneous tissues approximated with 3-0 Monocryl, skin with dennys. Xeroforms and d ressings and towel applied. Attention was then turned to the left side were elliptical incision was made for an en bloc resection in the nipple areolar complex Lexiscan obliquely oriented from the xiphoid to the axilla. The skin and subcutaneous tissue excised through the old scar from the previous partial mastectomy. Flaps dis sected free circumferentially, clavicle superiorly, sternum medially abdominal wall musculature infer iorly, latissimus laterally. The breast dissected free from the pectoralis fascia, dissecting Henry 's nodes, axillary dissection carried out identifying the axillary vein thoracodorsal and long thorac ic nerves keeping them free of harm, dividing axillary contents between clips and using the plasma bl steve excised and the specimen submitted to pathology. Wound irrigated, good hemostasis ensured with t he plasma blade. Two #19 gold DREW drains placed, each screwed with 3-0 nylon suture. Biopatch steril e dressings applied. Subcutaneous tissues approximated with 3-0 Monocryl, skin with subdermal with dennys and sterile dressings applied.
[2018-04-06] MEDS ORDERED: HYDROcodone/Acetaminophen 5/325 mg Tablet ONE (17:43)
== END 2018-04-06 18:30 | disposition home or self-care (01) ==
LOC: SDC 09:54
PROVIDERS: ATTEND Specialist
PROC: 0HBT0ZZ Excision of Right Breast, Open Approach (ICD-10-PCS; principal; 2018-04-06)
PROC: 0HTU0ZZ Resection of Left Breast, Open Approach (ICD-10-PCS; 2018-04-06)
DX: D24.1 Benign neoplasm of right breast (principal); J44.9 Chronic obstructive pulmonary disease, unspecified; I10 Essential (primary) hypertension; E11.9 Type 2 diabetes mellitus without complications; E03.9 Hypothyroidism, unspecified; Z79.82 Long term (current) use of aspirin; Z88.8 Allergy status to other drugs, medicaments and biological substances; Z79.899 Other long term (current) drug therapy; Z87.891 Personal history of nicotine dependence
CPT/HCPCS: 88307; 88309; J0131; J1885; J2250; J2405; J2704; J3010

== ENCOUNTER 2018-05-11 13:25 | Outpatient (CLI) | payer MEDICARE ==
--- NOTE | 2018-05-11 15:00 | RAD ---
PA AND LATERAL VIEWS CHEST: Date: 05/11/18 HISTORY: Malignant neoplasm of lower lobe, left bronchus or lung. FINDINGS: Comparison made with exam of 10/11/17. The heart size is normal. The aorta is tortuous. The lungs are well expanded without focal areas of c onsolidation, pneumothorax, or pleural effusions. There are degenerative changes in the spine. There are surgical clips in the left axilla. IMPRESSION: No radiographic evidence of acute cardiopulmonary process. POS: [facility]
== END 2018-05-11 13:26 | disposition home or self-care (01) ==
LOC: RAD 13:25
PROVIDERS: ATTEND Thoracic Surgery (Cardiothoracic Vascular Surgery)
DX: C34.32 Malignant neoplasm of lower lobe, left bronchus or lung (principal)
CPT/HCPCS: 71046

== ENCOUNTER 2018-11-23 13:31 | Outpatient (CLI) | payer MEDICARE ==
--- NOTE | 2018-11-23 13:54 | RAD ---
2 views of the chest 11/23/2018 COMPARISON: 07/13/2017 HISTORY: Shortness of breath, malignant neoplasm of the left lung FINDINGS: There is prominence of the pulmonary vasculature in bilateral hilar regions. The right hilu m is prominent when compared to the prior examination, especially lateral to the expected location of the right pulmonary artery. This could represent vascular structures or a right perihilar lesion. There is atherosclerotic calcification of the aortic arch. Suture material overlies the left perihilar region. There is increased linear density bilaterally with pulmonary hyperinflation, sugges ting COPD. No focal consolidation or alveolar edema. IMPRESSION: Chronic findings as detailed above. There is also prominence of the right hilar shadow wh ich could represent underlying right perihilar mass. Recommend CT examination CODE T
== END 2018-11-23 13:32 | disposition home or self-care (01) ==
LOC: RAD 13:31
PROVIDERS: ATTEND Thoracic Surgery (Cardiothoracic Vascular Surgery)
DX: C34.32 Malignant neoplasm of lower lobe, left bronchus or lung (principal); I70.0 Atherosclerosis of aorta; R91.8 Other nonspecific abnormal finding of lung field
CPT/HCPCS: 71046

== ENCOUNTER 2019-02-03 09:32 | Outpatient (CLI) | payer MEDICARE ==
--- NOTE | 2019-02-03 14:28 | PET ---
PET CT: HISTORY: A 78-year-old female with a history of left breast cancer and solitary pulmonary nodule. The patient has had a bilateral mastectomy and left lung lobectomy in 2018. TECHNIQUE: PET scanning with CT attenuation correction was performed from the base of the brain through the prox imal thighs following the intravenous administration of 11.3 mCi [id number] in the right antecubital fossa. COMPARISON: None. CORRELATION: CT chest dated 01/25/2019. FINDINGS: There is hypermetabolic activity in the 2 cm right lower lobe lung nodule with an SUV of 10.3. This is suspicious for malignancy. No galina hypermetabolism is seen in the neck, mediastinum, hilar regions, axilla, abdomen, pelvis, or inguinal regions. No hypermetabolic liver, adrenal, or skeletal lesions are seen. The CT scan used for attenuation correction demonstrates no evidence of pleural effusions or ascites. There is hepatomegaly, cholelithiasis, bilateral adrenal adenomas, and colonic diverticulosis. IMPRESSION: Findings are suspicious for right lower lobe lung malignancy. POS: POONAM
== END 2019-02-03 09:33 | disposition home or self-care (01) ==
LOC: PET 09:32
PROVIDERS: ATTEND Internal Medicine Pulmonary Disease
DX: R91.1 Solitary pulmonary nodule (principal)
CPT/HCPCS: 78815; A9552

== ENCOUNTER 2019-02-17 08:30 | Inpatient (IN) | payer MEDICARE ==
[2019-02-17 09:31] LABS: Hemoglobin 13.3 g/dL (12.0-16.0); Mean Corpuscular HGB CONC 33.7 g/dL (32.0-36.0); Mean Corpuscular Hemoglobin 28.9 pg (27.0-31.0); Mean Corpuscular Volume 85.7 fL (78.0-98.0); Mean Platelet Volume 7.9 fL (7.4-10.4); Platelet Count 162 thou/uL (130-400); RBC Distribution Width 13.5 % (11.5-14.5); Red Blood Cell (RBC) Count 4.59 mill/uL (4.20-5.40); White Blood Cell (WBC) Count 7.9 thou/uL (4.8-10.8)
[2019-02-17 09:51] LABS: Anion Gap 13 mmol/L (10-20); BUN (Urea Nitrogen) 21 mg/dL (9.8-20.1); Calc. Creatinine Clearance 0 mL/min (70-130); Calcium 9.4 mg/dL (7.8-10.44); Carbon Dioxide 25 mmol/L (23-31); Chloride 104 mmol/L (98-107); Estimated GFR-MDRD 59; Glucose 153 mg/dL (83-110); Potassium 4.4 mmol/L (3.5-5.1); Sodium 138 mmol/L (136-145)
[2019-02-20] MEDS ORDERED: Midazolam HCl 2 mg/2 ml Vial ONE ×2 (06:27→06:38)
[2019-02-20] MEDS ORDERED: Fentanyl 100 MCG/2 ML VIAL ONE ×3 (06:27→06:39)
[2019-02-20] MEDS ORDERED: Bupivacaine HCl 0.5%/Epinephrine 1:200,000/PF 30 ml Vial ONE (06:37)
[2019-02-20] MEDS ORDERED: Lidocaine 1.5% w/Epi 1:200K 30 ML VIAL (Epid Use) ONE (07:20)
[2019-02-20] MEDS ORDERED: Promethazine HCl 25 MG SUPP PR PRN (07:30)
[2019-02-20] MEDS ORDERED: diphenhydrAMINE 25 MG CAP PO PRN (07:30)
[2019-02-20] MEDS ORDERED: diphenhydrAMINE 50 MG/ML VIAL IM PRN (07:30)
[2019-02-20] MEDS ORDERED: Ondansetron PF 4 MG/2 ML Vial IVP PRN ×2 (07:30→11:23)
[2019-02-20] MEDS ORDERED: Bupivacaine 0.25% 10 ML VIAL EPIDURAL PRN (07:30)
[2019-02-20] MEDS ORDERED: Zolpidem Tartrate 5 MG TAB PO PRN (07:30)
[2019-02-20] MEDS ORDERED: diphenhydrAMINE 50 MG/ML VIAL IVP PRN (07:30)
[2019-02-20] MEDS ORDERED: Promethazine HCl 25 MG/ML VIAL IM PRN (07:30)
[2019-02-20] MEDS ORDERED: traMADol HCl 50 MG TAB PO PRN ×2 (07:30)
[2019-02-20] MEDS ORDERED: Hydrocerin (Eucerin) Cream 120 gm Jar TOP PRN (07:30)
[2019-02-20] MEDS ORDERED: Naloxone HCl 0.4 mg/ml Vial IV PRN (07:30)
[2019-02-20] MEDS ORDERED: Naloxone HCl 0.4 mg/ml Vial IVP PRN (07:30)
[2019-02-20] MEDS ORDERED: Ondansetron HCl/PF 4 MG/2 ML Vial IVP PRN (08:52)
--- NOTE | 2019-02-20 10:54 | OP ---
DATE OF PROCEDURE: 02/20/2019 PREOPERATIVE DIAGNOSIS: Right lower lobe carcinoma. POSTOPERATIVE DIAGNOSIS: Right lower lobe carcinoma, non-small cell. PROCEDURE PERFORMED: Right thoracotomy with superior segmentectomy, right lower lobe. ANESTHESIA: General. ESTIMATED BLOOD LOSS: Less than 150. DESCRIPTION OF PROCEDURE: After adequate double-lumen endotracheal anesthesia had been performed, the patient was prepped and draped. Posterolateral muscle sparing thoracotomy was carried out and the chest was entered through the fifth intercostal space breaking the sixth rib during spreading. Following this, the major fissure was fully mobilized and completed with three firings from a green staple load. After this had been accomplished, pulmonary artery segments x2 to the superior segment were handled with a vascular staple load and the venous branch to the superior segment was similarly handled. After this had been done, the two bronchi to the superior segment were individually controlled with the green staple load. Following which, the delineation between basilar and superior segments was identified by the atelectatic region. Multiple firings of the green stapler were then used to complete this division. Specimen was clearly within the confines of the segment removed and frozen section came back non-small cell cancer. Following this, two chest tube drains were placed. The area was thoroughly irrigated with water. Malik tissue was obtained from R4 as well as hilar segments. Following taking down of the inferior pulmonary ligament, the chest was closed with double-stranded catgut sutures and the subcutaneous tissue and skin were closed. The patient is to be taken to the recovery room in guarded condition. Job ID: [id number]
--- NOTE | 2019-02-20 11:11 | RAD ---
Portable chest radiograph: 02/20/2019 COMPARISON: 06/19/2017 and 11/23/2018 HISTORY: Lung cancer status post surgery FINDINGS: Heart and mediastinal contours demonstrate no acute findings. There is increased density in the medial right lung base which may be on the basis of volume loss. There are 2 right-sided chest tubes present. No right-sided pneumothorax. No lobar consolidation or a lveolar edema. There is atherosclerotic calcification of the aortic arch. IMPRESSION: Postoperative changes on the right.
[2019-02-20] MEDS ORDERED: Dextrose 5% in Water 1,000 ML IV PRN (11:23)
[2019-02-20] MEDS ORDERED: HYDROcodone/Acetaminophen 5/325 mg Tablet PO PRN ×2 (11:23)
[2019-02-20] MEDS ORDERED: Fentanyl 100 MCG/2 ML VIAL SLOW IVP PRN ×4 (11:23→11:37)
[2019-02-20] MEDS ORDERED: Dextrose 50% Abboject 50 ML SYRINGE SLOW IVP PRN (11:23)
[2019-02-20] MEDS ORDERED: Phenylephrine 10 MG/NS 250 ML 250 ML IVPB PRN (11:23)
[2019-02-20] MEDS ORDERED: hydrALAZINE 20 MG/ML VIAL SLOW IVP PRN (11:23)
[2019-02-20] MEDS: Lactated Ringer's 1,000 ML IV SCH (11:30)
[2019-02-20] MEDS: Ketorolac Tromethamine 30 MG/ML VIAL IVP SCH ×3 (12:11→23:57)
--- NOTE | 2019-02-20 12:50 | CON ---
DATE OF CONSULTATION: 02/20/2019 HISTORY OF PRESENT ILLNESS: Suzie Martinez is a 78-year-old female, well known to me, who has marked COPD. PET scan was done, which showed hypermetabolic activity, 2-cm right lower lung lesion, which was consistent with malignancy. She underwent a resection of the lesion today. Postop, she is in the ICU, extubated , minimal pain. Denies any shortness of breath. X-ray shows no acute infiltrates. PAST MEDICAL HISTORY: Extensive history is well outlined in previous medical records, pertinent for; 1. COPD. 2. Hypertension. 3. Reflux. 4. Anxiety. PAST SURGICAL HISTORY: 1. Hysterectomy. 2. Tonsillectomy. 3. Thyroid surgery. 4. Previous left lower lobectomy. HOME MEDICATIONS: Include; 1.incruse 1 puff a day. 2.symbocort twice a day. 3. Pravachol. 4. Lisinopril 20. 5. Synthroid 75. 6. Arimidex 1. 7. Norvasc. 8. Xanax. ALLERGIES: ALLOPURINOL. REVIEW OF SYSTEMS: Negative. PHYSICAL EXAMINATION: VITAL SIGNS: O2 sat is 94% over supplemental oxygen, pulse 73, blood pressure 123/62. CHEST: Decreased breath sounds. Minimal rhonchi. CARDIAC: Normal S1, S2. No gallops. ABDOMEN: No masses. IMPRESSION AND PLAN: 1. Chronic obstructive pulmonary disease, status post thoracotomy. 2. Diabetes. 3. Hypothyroidism. 4. Anxiety. Continue neb treatments, supportive care, PT. Early ambulation. We will follow. Job ID: [id number] MTDD
[2019-02-20] MEDS: HumaLOG 300 UNITS/3 ML VIAL SC PRN ×3 (13:12→21:46)
[2019-02-20] MEDS: CEFAZOLIN 2 GM in Premix Bag 1 BAG IVPB SCH ×2 (13:58→21:44)
[2019-02-20] MEDS ORDERED: Dexamethasone 20 MG/5 ML VIAL ONE (14:47)
[2019-02-20] MEDS ORDERED: Ketorolac Tromethamine 30 MG/ML VIAL ONE (14:47)
[2019-02-20] MEDS ORDERED: Lidocaine 1% PF 5 ML VIAL ONE (14:47)
[2019-02-20] MEDS ORDERED: Rocuronium Bromide 10 MG/ML (10ML VIAL) ONE (14:47)
[2019-02-20] MEDS ORDERED: PROPOFOL 200 MG/20 ML VIAL ONE (14:47)
[2019-02-20] MEDS ORDERED: Glycopyrrolate 0.2 MG/ML 5 ML SYRINGE ONE (14:47)
[2019-02-20] MEDS ORDERED: Labetalol HCl 100 MG/20 ML VIAL ONE (14:47)
[2019-02-20] MEDS ORDERED: Ondansetron PF 4 MG/2 ML Vial ONE (14:47)
[2019-02-20] MEDS: Mometasone/Formoterol 120 PUFF INHALER INH SCH (19:16)
[2019-02-20] MEDS: Simvastatin 5 MG TAB PO SCH (21:43)
[2019-02-20] MEDS: fentaNYL Citrate/PF 500 MCG, Bupivacaine 10 ML in Sodium Chloride 0.9% 80 ML EPIDURAL SCH (23:23)
[2019-02-21] MEDS: Lactated Ringer's 1,000 ML IV SCH (02:07)
[2019-02-21] MEDS: HumaLOG 300 UNITS/3 ML VIAL SC PRN ×4 (06:19→20:31)
[2019-02-21] MEDS: CEFAZOLIN 2 GM in Premix Bag 1 BAG IVPB SCH (06:20)
[2019-02-21] MEDS: Ketorolac Tromethamine 30 MG/ML VIAL IVP SCH ×4 (06:21→23:00)
[2019-02-21] MEDS: Levothyroxine Sodium 75 MCG TAB PO SCH (06:22)
[2019-02-21] MEDS: Mometasone/Formoterol 120 PUFF INHALER INH SCH ×2 (07:05→18:19)
[2019-02-21 07:34] LABS: #Lymphocytes 0.7 thou/uL (1.20-3.40); #Monocytes 0.7 thou/uL (0.11-0.59); #Neutrophils 6.4 thou/uL (1.40-6.50); %Basophils 0.3 % (0.0-1.0); %Eosinophils 0.2 % (0.0-10.0); %Monocytes 8.9 % (0.0-10.0); %Neutrophils 81.5 % (42.0-75.0); Hemoglobin 10.8 g/dL (12.0-16.0); Mean Corpuscular HGB CONC 33.3 g/dL (32.0-36.0); Mean Corpuscular Hemoglobin 28.4 pg (27.0-31.0); Mean Corpuscular Volume 85.3 fL (78.0-98.0); Mean Platelet Volume 8.4 fL (7.4-10.4); Platelet Count 139 thou/uL (130-400); RBC Distribution Width 13.4 % (11.5-14.5); White Blood Cell (WBC) Count 7.8 thou/uL (4.8-10.8)
[2019-02-21 08:01] LABS: Anion Gap 14 mmol/L (10-20); BUN (Urea Nitrogen) 20 mg/dL (9.8-20.1); Calc. Creatinine Clearance 66 mL/min (70-130); Calcium 8.7 mg/dL (7.8-10.44); Carbon Dioxide 22 mmol/L (23-31); Chloride 104 mmol/L (98-107); Estimated GFR-MDRD 60; Glucose 165 mg/dL (83-110); Sodium 136 mmol/L (136-145)
[2019-02-21] MEDS: metFORMIN 500 MG TAB PO SCH ×2 (08:09→17:01)
[2019-02-21] MEDS: Glimepiride 1 MG TAB PO SCH (08:09)
[2019-02-21] MEDS: Carvedilol 3.125 MG TAB PO SCH ×2 (08:10→17:00)
--- NOTE | 2019-02-21 08:41 | RAD ---
SINGLE VIEW CHEST: HISTORY: Status post thoracotomy. COMPARISON: None. FINDINGS: A single view of the chest shows a normal sized cardiomediastinal silhouette. The right-sided chest tube is without evidence of pneumothorax. No change has occurred compared to the prior examination. IMPRESSION: Stable examination. POS: C
--- NOTE | 2019-02-21 09:42 | PRG ---
DATE OF SERVICE: 02/21/2019 SUBJECTIVE: This morning, awake, alert, and responsive. She is better. No pain. No shortness of breath. She says is eager to go home. Labs unremarkable, and chest x-ray is clear. OBJECTIVE: VITAL SIGNS: Saturations are 99% on 2 L, pulse 73, respirations 16, blood [id number]/60. CHEST: Extensive rhonchi. CARDIAC: Normal S1 and S2. No gallops. ABDOMEN: No mass. ASSESSMENT AND PLAN: 1. Status post thoracotomy, right lower lobe segmentectomy, awaiting pathology. 2. Severe chronic obstructive pulmonary disease. Schedule neb treatments, Dulera, PT supportive care. We will follow. Job ID: [id number] [facility]
[2019-02-21] MEDS: fentaNYL Citrate/PF 500 MCG, Bupivacaine 10 ML in Sodium Chloride 0.9% 80 ML EPIDURAL SCH (12:52)
[2019-02-21 17:09] VITALS: BMI 28.1
[2019-02-21] MEDS: Simvastatin 5 MG TAB PO SCH (20:27)
[2019-02-22] MEDS: fentaNYL Citrate/PF 500 MCG, Bupivacaine 10 ML in Sodium Chloride 0.9% 80 ML EPIDURAL SCH ×3 (00:01→23:33)
[2019-02-22] MEDS: Ketorolac Tromethamine 30 MG/ML VIAL IVP SCH (03:54)
[2019-02-22] MEDS: HYDROcodone/Acetaminophen 5/325 mg Tablet PO PRN ×4 (03:54→16:29)
[2019-02-22] MEDS: Levothyroxine Sodium 75 MCG TAB PO SCH (06:23)
[2019-02-22] MEDS: Mometasone/Formoterol 120 PUFF INHALER INH SCH ×2 (08:04→18:41)
[2019-02-22] MEDS: Glimepiride 1 MG TAB PO SCH (08:28)
[2019-02-22] MEDS: Carvedilol 3.125 MG TAB PO SCH ×2 (08:28→16:29)
[2019-02-22] MEDS: metFORMIN 500 MG TAB PO SCH ×2 (08:28→16:29)
--- NOTE | 2019-02-22 08:57 | RAD ---
CHEST 1 VIEW PORTABLE: Date: 02/22/19 HISTORY: Status post thoracotomy. COMPARISON: 02/21/19. FINDINGS: Two right chest tubes remain in place. Increased markings bilaterally with some persistent nodular fu llness in the right hilar and infrahilar region. No significant pneumothorax. IMPRESSION: Stable postoperative appearance with two right-sided chest tubes without significant pneumothorax. Co ntinued follow-up for clearing. POS: DENISSE
--- NOTE | 2019-02-22 09:01 | PRG ---
DATE OF SERVICE: 02/22/2019 SUBJECTIVE: This morning, the patient is doing well, less pain, less shortness of breath. OBJECTIVE: VITAL SIGNS: Saturations are 94% on 2 L, respiratory rate 16, temperature 99, and blood pressure 123/73. CHEST: Bilateral rhonchi, crackles. CARDIAC: Normal S1, S2. No gallop. ABDOMEN: No mass. ASSESSMENT: Status post right lower lobe resection, squamous cell carcinoma; chronic obstructive pulmonary disease, severe; severe deconditioning. PLAN: Continue neb treatments, PT supportive care, empiric antibiotics. We will follow. Job ID: [id number]
[2019-02-22] MEDS: Cefdinir 300 MG CAP PO SCH ×2 (10:30→20:01)
[2019-02-22] MEDS: HumaLOG 300 UNITS/3 ML VIAL SC PRN (11:55)
[2019-02-22] MEDS: Ibuprofen 200 MG TAB PO SCH ×3 (11:56→23:32)
--- NOTE | 2019-02-22 12:32 | PQF ---
PACO WILKERSON JAMES M MD [id number] CLINICAL DOCUMENTATION IMPROVEMENT CLARIFICATION FORM: ICD-10 Updated PLEASE DO AN ADDENDUM TO THE PROGRESS NOTE WITH ANY DOCUMENTATION UPDATES OR ADDITIONS AND CARRY THROUGH TO DC SUMMARY. THANK YOU. DATE: 02/22/19 ATTN:DR. Castillo GRADY Please exercise your independent, professional judgment in responding to the clarification form. Clinical indicators are provided on the bottom of this form for your review. Please check appropriate box(s): [ ] Acute Respiratory Failure: [ ] with Hypoxia[ ] with Hypercapnia [ ] Acute On Chronic Respiratory Failure: [ ] with Hypoxia [ ] with Hypercapnia [ ] Acute Respiratory Failure due to: (etiology) [ y ] Chronic Respiratory Failure only [ ] with Hypoxia [ ] with Hypercapnia [ ] Other diagnosis [ ] Unable to determine In addition, please specify: Present on Admission (POA): [ y ] Yes [ ] No [ ] Unable to determine For continuity of documentation, please document condition throughout progress notes and discharge summary. Thank You. CLINICAL INDICATORS - SIGNS / SYMPTOMS / LABS 02/09/19 H&P (YSABEL) HPI: 12 MONTHS S/P RESECTION SUPERIOR SEGMENTECTOMY LLL FOR CANCER AND FOLLOWED BY BILATERAL MASTECTOMY NOW FOUND TO HAVE NEW PET POSITIVE MASS RLL. 02/20 CONSULT (LEARY) IMPRESSION AND PLAN: CHRONIC OBSTRUCTIVE PULMONARY DISEASE, STATUS POST THORACOTOMY. PLAN: CONTINUE NEB TREATMENTS, SUPPORTIVE CARE 02/21 PN () ASSESSMENT: 2) SEVERE CHRONIC OBSTRUCTIVE PULMONARY DISEASE, PLAN : SCHEDULE NEB TREATMENT, DULERA RISK: DX: RIGHT LOWER LOBE MASS (H&P/YSABEL) 02/09 HX: MARKED COPD, ANXIETY (LEARY/CONSULT) 02/20 HX TOBACCO ABUSE, MALIGNANT NEOPLASM OF LLL (H&P/YSABEL) 02/09 TREATMENTS: SUPPLEMENTAL OXYGEN (02/20-PRESENT) PULMONOLOGY CONSULT() THANK YOU! SARAI (This form is maintained as a part of the permanent medical record) 2014 [employer]. All Rights Reserved [email or web address] [phone] HARRY
[2019-02-22] MEDS: Enoxaparin Sodium 30 MG/0.3 ML SYRINGE SC SCH (14:39)
[2019-02-22] MEDS: Simvastatin 5 MG TAB PO SCH (20:01)
[2019-02-22] MEDS ORDERED: Digoxin 0.5 MG/2 ML AMP SLOW IVP SCH (21:45)
[2019-02-23] MEDS: Levothyroxine Sodium 75 MCG TAB PO SCH (05:16)
[2019-02-23] MEDS: Ibuprofen 200 MG TAB PO SCH ×3 (05:18→17:08)
[2019-02-23] MEDS: Mometasone/Formoterol 120 PUFF INHALER INH SCH ×2 (07:12→18:49)
[2019-02-23] MEDS: Carvedilol 3.125 MG TAB PO SCH ×2 (08:44→17:08)
[2019-02-23] MEDS: Glimepiride 1 MG TAB PO SCH (08:44)
[2019-02-23] MEDS: metFORMIN 500 MG TAB PO SCH ×2 (08:44→17:08)
[2019-02-23] MEDS: Cefdinir 300 MG CAP PO SCH ×2 (08:44→19:59)
[2019-02-23] MEDS: guaiFENesin ER 600 MG TAB PO SCH ×2 (08:51→19:59)
--- NOTE | 2019-02-23 09:21 | RAD ---
PORTABLE CHEST: HISTORY: Post thoracotomy. COMPARISON: Prior day's study. FINDINGS: Hear size appears borderline enlarged with atherosclerotic changes of the aorta. Two right chest tub es remain in place with parenchymal changes in the right base, essentially stable. IMPRESSION: Stable examination. POS: POONAM
--- NOTE | 2019-02-23 09:44 | PRG ---
DATE OF SERVICE: 02/23/2019 SUBJECTIVE: This morning, the patient is awake, alert, responsive, less pain, less shortness of breath. OBJECTIVE: VITAL SIGNS: Saturations are 94% on 2 L, respirations 16, temperature 99, pulse 71, blood pressure 120/64. CHEST: Extensive rhonchi bilaterally. CARDIAC: Normal S1 and S2. No gallops. ASSESSMENT: Status post wedge resection, segmentectomy, squamous cell carcinoma, chronic obstructive pulmonary disease, retained secretions. I added Mucinex to present regime. She is coughing some yellow sputum. She is already on some antibiotics. PLAN: Aggressive PT, supportive care. Chest tube is still draining. Home when the chest tube is removed. X-ray much improved. We will follow. Job ID: [id number]
[2019-02-23] MEDS: HumaLOG 300 UNITS/3 ML VIAL SC PRN ×2 (11:31→21:34)
[2019-02-23] MEDS: fentaNYL Citrate/PF 500 MCG, Bupivacaine 10 ML in Sodium Chloride 0.9% 80 ML EPIDURAL SCH (11:58)
[2019-02-23] MEDS: Enoxaparin Sodium 30 MG/0.3 ML SYRINGE SC SCH (14:47)
[2019-02-23] MEDS ORDERED: Polyethylene Glycol 3350 17 GM Packet PO SCH (19:00)
[2019-02-23] MEDS: Simvastatin 5 MG TAB PO SCH (19:59)
[2019-02-24] MEDS: Ibuprofen 200 MG TAB PO SCH (00:31)
[2019-02-24] MEDS: fentaNYL Citrate/PF 500 MCG, Bupivacaine 10 ML in Sodium Chloride 0.9% 80 ML EPIDURAL SCH (01:07)
[2019-02-24 04:19] VITALS: BP 153/80; TEMP 98.6
[2019-02-24] MEDS: Levothyroxine Sodium 75 MCG TAB PO SCH (05:45)
[2019-02-24] MEDS: Mometasone/Formoterol 120 PUFF INHALER INH SCH (08:33)
--- NOTE | 2019-02-24 08:43 | RAD ---
PORTABLE CHEST: DATE: 02/24/2019. PROVIDED CLINICAL HISTORY: Status post thoracotomy. FINDINGS: Comparison 02/23/2019. Interval removal of right-sided chest tubes. Tiny apical right pneumothorax. Additional significant interval change with respect to the prior examination is not apparent. IMPRESSION: As above. POS: T[facility]
[2019-02-24] MEDS: Cefdinir 300 MG CAP PO SCH (08:59)
[2019-02-24] MEDS: metFORMIN 500 MG TAB PO SCH ×2 (08:59→17:04)
[2019-02-24] MEDS: Glimepiride 1 MG TAB PO SCH (08:59)
[2019-02-24] MEDS: Carvedilol 3.125 MG TAB PO SCH ×2 (08:59→17:04)
[2019-02-24] MEDS: guaiFENesin ER 600 MG TAB PO SCH (09:00)
[2019-02-24] MEDS ORDERED: Polyethylene Glycol 3350 17 GM Packet PO SCH (09:00)
[2019-02-24] MEDS: HYDROcodone/Acetaminophen 5/325 mg Tablet PO PRN (09:09)
--- NOTE | 2019-02-24 09:56 | PRG ---
DATE OF SERVICE: 02/24/2019 SUBJECTIVE: Chest tube was removed today. She is better, less pain. OBJECTIVE: VITAL SIGNS: Saturations are 95% on 2 L, respirations 16, pulse 76, temperature 98, blood pressure 130/80. CHEST: Decreased breath sounds. No wheezing. CARDIAC: Normal S1, S2. No gallop. ABDOMEN: No mass. IMPRESSION: 1. Status post right lower lobe segmentectomy, squamous cell carcinoma. 2. Severe chronic obstructive pulmonary disease. PLAN: Once the epidural is removed, she can be discharged home. Follow up in the office in a month. Job ID: [id number]
[2019-02-24] MEDS: Enoxaparin Sodium 30 MG/0.3 ML SYRINGE SC SCH (14:49)
[2019-02-24] MEDS: HumaLOG 300 UNITS/3 ML VIAL SC PRN (17:04)
--- NOTE | 2019-02-25 10:37 | DIS ---
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 In the interim, she has undergone bilateral mastectomies and then was found to have a new right superior segment lower lobe mass. This was resected with a superior segmentectomy and returned squamous cell carcinoma with negative nodes. Her postoperative course was uneventful. Chest tubes removed on 02/24, and she will be discharged home on her admitting medicines as well as Omnicef 300 b.i.d. for 5 days and [place] 7.5 for pain. Discharge and followup instructions were given. Job ID: [id number]
== END 2019-02-24 17:55 | disposition home or self-care (01) | DRG 164 ==
LOC: SURG A 02-20 05:51 → CCU 02-20 11:03 → SJJU 02-21 22:00
PROVIDERS: ADMIT Thoracic Surgery (Cardiothoracic Vascular Surgery); ATTEND Thoracic Surgery (Cardiothoracic Vascular Surgery)
PROC: 0BBF0ZZ Excision of Right Lower Lung Lobe, Open Approach (ICD-10-PCS; principal; 2019-02-20)
PROC: 07B70ZZ Excision of Thorax Lymphatic, Open Approach (ICD-10-PCS; 2019-02-20)
DX: C34.31 Malignant neoplasm of lower lobe, right bronchus or lung (principal); J96.10 Chronic respiratory failure, unspecified whether with hypoxia or hypercapnia; J44.9 Chronic obstructive pulmonary disease, unspecified; E11.9 Type 2 diabetes mellitus without complications; E03.9 Hypothyroidism, unspecified; I10 Essential (primary) hypertension; E78.5 Hyperlipidemia, unspecified; E78.2 Mixed hyperlipidemia; K21.9 Gastro-esophageal reflux disease without esophagitis; F41.9 Anxiety disorder, unspecified; Z90.710 Acquired absence of both cervix and uterus; Z91.09 Other allergy status, other than to drugs and biological substances
CPT/HCPCS: 36415; 36416; 71045; 80048; 85025; 85027; 86850; 86900; 86901; 88305; 88309; 88331; 88332; 88341; 88342; 93005; 93010; 94640; 94664; J0670; J0690; J1100; J1160; J1642; J1650; J1885; J2001; J2250; J2405; J2704; J3010; J3490; J7620

== ENCOUNTER 2019-07-03 13:57 | Outpatient (CLI) | payer MEDICARE ==
--- NOTE | 2019-07-03 14:17 | RAD ---
2 views of the chest: 07/03/2019 COMPARISON: 03/27/2019 HISTORY: Malignant neoplasm of lung. FINDINGS: Postoperative clips overlie the left axillary region. Age indeterminant posterior lateral r ight-sided sixth rib fracture noted. There is atherosclerotic calcification of the aortic arch. Increased linear interstitial density with pulmonary hyperinflation noted, suggesting COPD. Pulmonary parenchymal suture line overlies the right lung base. IMPRESSION: No focal consolidation or alveolar edema. Chronic appearing findings as described above. Age indeterminant right-sided sixth rib fracture.
== END 2019-07-03 13:58 | disposition home or self-care (01) ==
LOC: RAD 13:57
PROVIDERS: ATTEND Thoracic Surgery (Cardiothoracic Vascular Surgery)
DX: C34.32 Malignant neoplasm of lower lobe, left bronchus or lung (principal)
CPT/HCPCS: 71046

== ENCOUNTER 2019-11-01 13:51 | Outpatient (CLI) | payer MEDICARE ==
--- NOTE | 2019-11-01 14:11 | RAD ---
EXAM: Two views chest PROVIDED CLINICAL HISTORY: Malignant neoplasm lower lobe. COMPARISON: 07/03/2019 FINDINGS: Cardiac silhouette and pulmonary vasculature are within normal limits. Lungs are hyperexpanded with mild increase in interstitial densities are seen likely due to mild chronic lung changes. Radiopaque suture material is again seen overlying the right hilar region and right midlung zone with associated mild linear scarring. No consolidation or pleural fluid is seen. Right rib fractures are again seen, and surgical clips again overlie the left upper quadrant. Vascular calcifications are seen in the aortic arch. Radio opaque catheter overlies left upper quadrant incompletely imaged or evaluated on this exam. IMPRESSION: 1 Stable postoperative changes right hemithorax with stable mild chronic lung changes. 2. No acute cardiopulmonary process.
== END 2019-11-01 13:52 | disposition home or self-care (01) ==
LOC: RAD 13:51
PROVIDERS: ATTEND Thoracic Surgery (Cardiothoracic Vascular Surgery)
DX: C34.30 Malignant neoplasm of lower lobe, unspecified bronchus or lung (principal); Z98.890 Other specified postprocedural states
CPT/HCPCS: 71046

== ENCOUNTER 2020-12-19 12:30 | Outpatient (CLI) | payer MEDICARE | END 2020-12-19 12:31 | disposition home or self-care (01) | LOC: BICRAD 12:30 | PROVIDERS: ATTEND Thoracic Surgery (Cardiothoracic Vascular Surgery) | DX: C34.32 Malignant neoplasm of lower lobe, left bronchus or lung (principal) | CPT/HCPCS: 71046 ==

== ENCOUNTER 2022-07-28 12:30 | Outpatient (CLI) | payer MEDICARE | END 2022-07-28 12:31 | disposition home or self-care (01) | LOC: PET 12:30 | PROVIDERS: ATTEND Thoracic Surgery (Cardiothoracic Vascular Surgery) | DX: C34.32 Malignant neoplasm of lower lobe, left bronchus or lung (principal); R91.1 Solitary pulmonary nodule; R93.3 Abnormal findings on diagnostic imaging of other parts of digestive tract | CPT/HCPCS: 78815; A9552 ==

== ENCOUNTER 2024-07-05 23:30 | Inpatient (IN) | payer MEDICARE ==
[2024-07-06] MEDS ORDERED: Acetaminophen 325 MG TAB PO PRN (01:28)
[2024-07-06] MEDS ORDERED: Dextrose 5% in Water 1,000 ML IV PRN (01:33)
[2024-07-06] MEDS ORDERED: Dextrose 50% Abboject 50 ML SYRINGE SLOW IVP PRN (01:33)
[2024-07-06] MEDS ORDERED: Glucagon 1 MG/ML KIT IM PRN (01:33)
[2024-07-06] MEDS: Lactated Ringer's 1,000 ML IV SCH ×2 (02:59→14:53)
[2024-07-06 03:39] LABS: #Basophils 0.06 10x3/uL (0.0-0.2); #Eosinophils Less than 0.03 10x3/uL (0.0-0.7); %Basophils 0.3 % (0.0-1.0); %Lymphocytes 3.1 % (21.0-51.0); %Monocytes 2.6 % (0.0-10.0); %Neutrophils 90.7 % (42.0-75.0); Hematocrit 30.2 % (36.0-47.0); Hemoglobin 9.8 g/dL (12.0-16.0); Mean Corpuscular HGB CONC 32.5 g/dL (32.0-36.0); Mean Corpuscular Hemoglobin 27.8 pg (27.0-31.0); Mean Corpuscular Volume 85.6 fL (78.0-98.0); Mean Platelet Volume 10.4 fL (7.4-10.4); Platelet Count 100 10x3/uL (130-400); RBC Distribution Width 14.7 % (11.5-14.5); Red Blood Cell (RBC) Count 3.53 mill/uL (4.20-5.40)
[2024-07-06 03:52] LABS: Anion Gap 15 mmol/L (10-20); BUN (Urea Nitrogen) 48 mg/dL (9.8-20.1); Calc. Creatinine Clearance 30 mL/min (70-130); Calcium 8.2 mg/dL (7.8-10.44); Carbon Dioxide 15 mmol/L (23-31); Chloride 113 mmol/L (98-107); Estimated GFR 27; Glucose 220 mg/dL (83-110); Potassium 4.6 mmol/L (3.5-5.1); Sodium 138 mmol/L (136-145)
[2024-07-06 03:56] LABS: Troponin I 0.034 ng/mL (< 0.028)
[2024-07-06 04:02] LABS: CRP,High Sensitivity (Inhouse) 23.46 mg/dL (< or = 0.5)
[2024-07-06 04:14] LABS: Free T4 (Free Thyroxine) 1.3 ng/dL (0.70-1.48)
[2024-07-06 04:28] LABS: Lactic Acid 1.81 mmol/L (0.50-2.20)
[2024-07-06] MEDS ORDERED: Amlodipine 5 MG TAB PO SCH (09:00)
[2024-07-06] MEDS: Amlodipine 10 MG TAB PO SCH (09:25)
[2024-07-06] MEDS: Lisinopril 20 MG TAB PO SCH (09:25)
[2024-07-06] MEDS: Anastrozole 1 MG TAB PO SCH (09:25)
[2024-07-06] MEDS: Aspirin 325 MG TAB PO SCH (09:25)
[2024-07-06] MEDS: Levothyroxine Sodium 75 MCG TAB PO SCH (09:26)
[2024-07-06] MEDS: Enoxaparin 30 MG (0.3 mL) SYRINGE SC SCH (09:26)
[2024-07-06] MEDS: Carvedilol 25 MG TAB PO SCH (09:26)
[2024-07-06] MEDS: Vancomycin (BATCH) 1.75 GM in Premix 1 BAG IVPB SCH (10:26)
[2024-07-06] MEDS ORDERED: Vancomycin Dose by Levels Sliding Scale (Wt 71-99) FS SCH (10:45)
[2024-07-06 11:44] LABS: Hemoglobin A1c 6.8 % (4.0-6.0)
[2024-07-06] MEDS: Ondansetron ODT 4 MG TAB PO PRN (13:12)
[2024-07-06] MEDS: Cefepime 1 GM in Sodium Chloride 0.9% 100 ML IVPB SCH ×2 (13:54→20:31)
[2024-07-06] MEDS: Azithromycin 500 MG in Sodium Chloride 0.9% 250 ML 250 ML IVPB SCH (15:12)
[2024-07-06] MEDS: Insulin Lispro 100 UNIT/ML 10 ML VIAL SC PRN (16:25)
[2024-07-06] MEDS ORDERED: cefTRIAXone\\ROCEPHIN 1 GM in Sodium Chloride 0.9% 100 ML IVPB SCH (18:00)
[2024-07-06 19:46] LABS: Anion Gap 12 mmol/L (10-20); BUN (Urea Nitrogen) 51 mg/dL (9.8-20.1); Calc. Creatinine Clearance 28 mL/min (70-130); Carbon Dioxide 19 mmol/L (23-31); Chloride 112 mmol/L (98-107); Estimated GFR 25; Glucose 200 mg/dL (83-110); Sodium 138 mmol/L (136-145)
[2024-07-06] MEDS: NOREPINEPHRINE 8 MG/250 ML-D5W 250 ML IVPB PRN (20:30)
[2024-07-06] MEDS: Simvastatin 10 MG TAB PO SCH (20:31)
[2024-07-06] MEDS: Albumin 25% 25 GM (100 mL) BOT IVPB SCH ×2 (20:36→23:45)
[2024-07-06] MEDS ORDERED: Cefepime 1 GM in Sodium Chloride 0.9% 100 ML IVPB SCH (21:00)
[2024-07-06 21:25] LABS: Actual Bicarbonate (HCO3a) 19.3 mEq/L (22-28); Base Excess (BEa) -6.8 mEq/L (-2.0 to +3.0); CO2 Tension 40.7 mmHg (35.0-45.0); Calcium, Ionized (arterial) 1.16 mmol/L (1.12-1.30); Carboxyhemoglobin (COHb) 0.5 gm% (0.0-3.0); Hematocrit-ABG 30 % (36.0-47.0); Hemoglobin (Hb) 10.2 g/dL (12.0-16.0); O2 Tension (PaO2), arterial 72.1 mmHg (> 60.0); Potassium - ABG Lab 4.96 mmol/L (3.70-5.30); pH, Arterial 7.293 (7.35-7.45)
[2024-07-06 21:26] LABS: ALV-art Gradient 105.185 mmHg (0-20); Puncture Site Left Radial artery
[2024-07-06] MEDS: Ipratropium/Albuterol 3 ML NEB NEB PRN (22:21)
[2024-07-06] MEDS: Sodium Chloride 0.9% 1,000 ML IV SCH (22:47)
[2024-07-06] MEDS: Morphine 2 MG/ML VIAL SLOW IVP SCH (23:45)
[2024-07-07] MEDS: Enoxaparin 80 MG (0.8 mL) SYRINGE SC SCH ×2 (04:48→20:47)
[2024-07-07 04:58] LABS: #Basophils Less than 0.03 10x3/uL (0.0-0.2); #Eosinophils Less than 0.03 10x3/uL (0.0-0.7); %Basophils 0.1 % (0.0-1.0); %Eosinophils 0.1 % (0.0-10.0); %Lymphocytes 6.3 % (21.0-51.0); %Monocytes 3.7 % (0.0-10.0); %Neutrophils 87.7 % (42.0-75.0); Hematocrit 28.4 % (36.0-47.0); Hemoglobin 8.8 g/dL (12.0-16.0); Mean Corpuscular Hemoglobin 27.4 pg (27.0-31.0); Mean Corpuscular Volume 88.5 fL (78.0-98.0); Mean Platelet Volume 10.8 fL (7.4-10.4); Platelet Count 95 10x3/uL (130-400); RBC Distribution Width 14.7 % (11.5-14.5); Red Blood Cell (RBC) Count 3.21 mill/uL (4.20-5.40)
[2024-07-07 05:19] LABS: Anion Gap 15 mmol/L (10-20); BUN (Urea Nitrogen) 51 mg/dL (9.8-20.1); CK (CPK) 80 U/L (29-168); Calc. Creatinine Clearance 28 mL/min (70-130); Carbon Dioxide 18 mmol/L (23-31); Chloride 112 mmol/L (98-107); Estimated GFR 25; Glucose 132 mg/dL (83-110); Sodium 140 mmol/L (136-145)
[2024-07-07] MEDS: Levothyroxine Sodium 75 MCG TAB PO SCH (05:44)
[2024-07-07] MEDS: Famotidine/PF 20 mg/2ml Vial SLOW IVP SCH (08:00)
[2024-07-07] MEDS: Sodium Chloride 0.9% 1,000 ML IV SCH (08:14)
[2024-07-07 08:44] LABS: Creatinine, Urine 167.77 mg/dL (15.00-278.00)
[2024-07-07] MEDS ORDERED: Vancomycin Dose by Levels Sliding Scale (Wt 71-99) FS SCH (09:00)
[2024-07-07] MEDS ORDERED: Heparin 5,000 UNITS/ML VIAL SC SCH (09:00)
[2024-07-07] MEDS: methylPREDNISolone Sod Succ 40 MG VIAL IVP SCH (11:26)
[2024-07-07] MEDS: Azithromycin 500 MG in Sodium Chloride 0.9% 250 ML 250 ML IVPB SCH (14:58)
[2024-07-07] MEDS: Morphine 2 MG/ML VIAL SLOW IVP SCH (14:58)
[2024-07-07] MEDS: Ipratropium/Albuterol 3 ML NEB NEB SCH (18:34)
[2024-07-07] MEDS ORDERED: ALPRAZolam 0.25 MG TAB PO SCH (21:00)
[2024-07-07] MEDS: Insulin Lispro 100 UNIT/ML 10 ML VIAL SC PRN (21:03)
[2024-07-07] MEDS: Amiodarone 450 MG in Dextrose 5% in Water 250 ML IVPB SCH (21:29)
[2024-07-08 04:31] LABS: Anion Gap 14 mmol/L (10-20); BUN (Urea Nitrogen) 54 mg/dL (9.8-20.1); Calc. Creatinine Clearance 29 mL/min (70-130); Calcium 8.5 mg/dL (7.8-10.44); Carbon Dioxide 18 mmol/L (23-31); Chloride 109 mmol/L (98-107); Estimated GFR 24; Glucose 282 mg/dL (83-110); Potassium 4.8 mmol/L (3.5-5.1); Sodium 136 mmol/L (136-145)
[2024-07-08 04:37] LABS: #Basophils Less than 0.03 10x3/uL (0.0-0.2); #Eosinophils Less than 0.03 10x3/uL (0.0-0.7); %Basophils 0.1 % (0.0-1.0); %Lymphocytes 5.8 % (21.0-51.0); %Monocytes 2.2 % (0.0-10.0); %Neutrophils 90.5 % (42.0-75.0); Hematocrit 28.5 % (36.0-47.0); Mean Corpuscular HGB CONC 31.6 g/dL (32.0-36.0); Mean Corpuscular Hemoglobin 27.7 pg (27.0-31.0); Mean Corpuscular Volume 87.7 fL (78.0-98.0); Mean Platelet Volume 11.6 fL (7.4-10.4); Platelet Count 91 10x3/uL (130-400); RBC Distribution Width 14.6 % (11.5-14.5); Red Blood Cell (RBC) Count 3.25 mill/uL (4.20-5.40)
[2024-07-08] MEDS: Levothyroxine Sodium 50 MCG TAB PO SCH (05:53)
[2024-07-08] MEDS: Sodium Chloride 0.9% 100 ML ONE ×2 (10:32→12:43)
[2024-07-08] MEDS: Insulin Lispro 100 UNIT/ML 10 ML VIAL SC PRN (11:47)
[2024-07-08] MEDS: cefTRIAXone\\ROCEPHIN 2 GM in Sodium Chloride 0.9% 100 ML IVPB SCH (12:29)
[2024-07-08] MEDS: Enoxaparin 100 MG (1 mL) SYRINGE SC SCH (20:51)
[2024-07-09 06:48] LABS: #Basophils Less than 0.03 10x3/uL (0.0-0.2); #Eosinophils Less than 0.03 10x3/uL (0.0-0.7); %Basophils 0.1 % (0.0-1.0); %Lymphocytes 4.4 % (21.0-51.0); %Monocytes 1.5 % (0.0-10.0); %Neutrophils 92.8 % (42.0-75.0); Hematocrit 30.1 % (36.0-47.0); Hemoglobin 9.7 g/dL (12.0-16.0); Mean Corpuscular HGB CONC 32.2 g/dL (32.0-36.0); Mean Corpuscular Hemoglobin 27.5 pg (27.0-31.0); Mean Corpuscular Volume 85.3 fL (78.0-98.0); Mean Platelet Volume 10.5 fL (7.4-10.4); Platelet Count 99 10x3/uL (130-400); RBC Distribution Width 14.6 % (11.5-14.5); Red Blood Cell (RBC) Count 3.53 mill/uL (4.20-5.40)
[2024-07-09 07:28] LABS: Anion Gap 13 mmol/L (10-20); BUN (Urea Nitrogen) 58 mg/dL (9.8-20.1); Calc. Creatinine Clearance 15 mL/min (70-130); Calcium 8.8 mg/dL (7.8-10.44); Carbon Dioxide 19 mmol/L (23-31); Chloride 109 mmol/L (98-107); Estimated GFR 29; Glucose 253 mg/dL (83-110); Potassium 4.4 mmol/L (3.5-5.1); Sodium 137 mmol/L (136-145)
[2024-07-09] MEDS: Amiodarone 200 MG TAB PO SCH ×2 (13:56→19:43)
[2024-07-09] MEDS: ALPRAZolam 0.25 MG TAB PO PRN (19:46)
[2024-07-09] MEDS: Enoxaparin 80 MG (0.8 mL) SYRINGE SC SCH (19:48)
[2024-07-10 05:58] LABS: Anion Gap 13 mmol/L (10-20); BUN (Urea Nitrogen) 54 mg/dL (9.8-20.1); Calc. Creatinine Clearance 15 mL/min (70-130); Carbon Dioxide 21 mmol/L (23-31); Chloride 109 mmol/L (98-107); Estimated GFR 30; Glucose 232 mg/dL (83-110); Potassium 4.4 mmol/L (3.5-5.1); Sodium 139 mmol/L (136-145)
[2024-07-10 06:09] LABS: #Basophils Less than 0.03 10x3/uL (0.0-0.2); #Eosinophils Less than 0.03 10x3/uL (0.0-0.7); %Basophils 0.1 % (0.0-1.0); %Lymphocytes 5.7 % (21.0-51.0); %Monocytes 4.5 % (0.0-10.0); %Neutrophils 88.3 % (42.0-75.0); Hematocrit 30.4 % (36.0-47.0); Hemoglobin 9.9 g/dL (12.0-16.0); Mean Corpuscular HGB CONC 32.6 g/dL (32.0-36.0); Mean Corpuscular Hemoglobin 27.5 pg (27.0-31.0); Mean Corpuscular Volume 84.4 fL (78.0-98.0); Mean Platelet Volume 10.9 fL (7.4-10.4); Platelet Count 105 10x3/uL (130-400); RBC Distribution Width 14.5 % (11.5-14.5)
[2024-07-10] MEDS: predniSONE 20 MG TAB PO SCH (09:31)
[2024-07-11 03:46] LABS: Anion Gap 15 mmol/L (10-20); BUN (Urea Nitrogen) 43 mg/dL (9.8-20.1); Calc. Creatinine Clearance 37 mL/min (70-130); Carbon Dioxide 20 mmol/L (23-31); Chloride 109 mmol/L (98-107); Estimated GFR 34; Glucose 234 mg/dL (83-110); Potassium 4.3 mmol/L (3.5-5.1); Sodium 140 mmol/L (136-145)
[2024-07-11 03:50] LABS: #Basophils Less than 0.03 10x3/uL (0.0-0.2); #Eosinophils Less than 0.03 10x3/uL (0.0-0.7); %Basophils 0.2 % (0.0-1.0); %Lymphocytes 6.3 % (21.0-51.0); %Monocytes 8.5 % (0.0-10.0); %Neutrophils 82.6 % (42.0-75.0); Hematocrit 31.2 % (36.0-47.0); Hemoglobin 10.2 g/dL (12.0-16.0); Mean Corpuscular HGB CONC 32.7 g/dL (32.0-36.0); Mean Corpuscular Hemoglobin 27.3 pg (27.0-31.0); Mean Corpuscular Volume 83.4 fL (78.0-98.0); Mean Platelet Volume 10.8 fL (7.4-10.4); Platelet Count 110 10x3/uL (130-400); RBC Distribution Width 14.4 % (11.5-14.5); Red Blood Cell (RBC) Count 3.74 mill/uL (4.20-5.40)
[2024-07-11 07:30] VITALS: BMI 26.4
[2024-07-11] MEDS: Enoxaparin 80 MG (0.8 mL) SYRINGE SC SCH (20:12)
[2024-07-12 05:34] LABS: #Basophils Less than 0.03 10x3/uL (0.0-0.2); #Eosinophils Less than 0.03 10x3/uL (0.0-0.7); %Basophils 0.1 % (0.0-1.0); %Eosinophils 0.1 % (0.0-10.0); %Lymphocytes 11.3 % (21.0-51.0); %Monocytes 9.2 % (0.0-10.0); %Neutrophils 77.3 % (42.0-75.0); Hematocrit 31.7 % (36.0-47.0); Hemoglobin 10.1 g/dL (12.0-16.0); Mean Corpuscular HGB CONC 31.9 g/dL (32.0-36.0); Mean Corpuscular Hemoglobin 27.2 pg (27.0-31.0); Mean Corpuscular Volume 85.4 fL (78.0-98.0); Mean Platelet Volume 10.9 fL (7.4-10.4); Platelet Count 108 10x3/uL (130-400); RBC Distribution Width 14.5 % (11.5-14.5); Red Blood Cell (RBC) Count 3.71 mill/uL (4.20-5.40)
[2024-07-12 05:36] LABS: Anion Gap 15 mmol/L (10-20); BUN (Urea Nitrogen) 37 mg/dL (9.8-20.1); Calc. Creatinine Clearance 43 mL/min (70-130); Calcium 8.6 mg/dL (7.8-10.44); Carbon Dioxide 22 mmol/L (23-31); Chloride 107 mmol/L (98-107); Estimated GFR 40; Glucose 244 mg/dL (83-110); Potassium 3.9 mmol/L (3.5-5.1); Sodium 140 mmol/L (136-145)
[2024-07-12] MEDS: Apixaban 5 MG TAB PO SCH (10:16)
[2024-07-12] MEDS: Aspirin 81 mg Enteric Coated Tablet PO SCH (10:18)
[2024-07-12 12:00] VITALS: BP 148/84; TEMP 98.6
== END 2024-07-12 16:15 | disposition home or self-care (01) | DRG 871 ==
LOC: UNDOADMIN 23:30 → 2NO 23:30 → CCU 07-06 19:37 → IMCU/EMU 07-07 16:42 → PCU 07-11 22:10
PROVIDERS: ADMIT Student in an Organized Health Care Education/Training Program; ATTEND Student in an Organized Health Care Education/Training Program
PROC: 4A033R1 Measurement of Arterial Saturation, Peripheral, Percutaneous Approach (ICD-10-PCS; principal; 2024-07-06)
PROC: 3E03329 Introduction of Other Anti-infective into Peripheral Vein, Percutaneous Approach (ICD-10-PCS; 2024-07-06)
PROC: 3E033XZ Introduction of Vasopressor into Peripheral Vein, Percutaneous Approach (ICD-10-PCS; 2024-07-06)
PROC: 30233J1 Transfusion of Nonautologous Serum Albumin into Peripheral Vein, Percutaneous Approach (ICD-10-PCS; 2024-07-06)
PROC: 5A09357 Assistance with Respiratory Ventilation, Less than 24 Consecutive Hours, Continuous Positive Airway Pressure (ICD-10-PCS; 2024-07-09)
DX: A41.59 Other Gram-negative sepsis (principal); I50.33 Acute on chronic diastolic (congestive) heart failure; J96.01 Acute respiratory failure with hypoxia; E87.20 Acidosis, unspecified; N39.0 Urinary tract infection, site not specified; N17.9 Acute kidney failure, unspecified; I13.0 Hypertensive heart and chronic kidney disease with heart failure and stage 1 through stage 4 chronic kidney disease, or unspecified chronic kidney disease; E03.9 Hypothyroidism, unspecified; F41.9 Anxiety disorder, unspecified; E11.65 Type 2 diabetes mellitus with hyperglycemia; N18.9 Chronic kidney disease, unspecified; E11.22 Type 2 diabetes mellitus with diabetic chronic kidney disease; M10.9 Gout, unspecified; D63.1 Anemia in chronic kidney disease; E86.0 Dehydration; Z88.8 Allergy status to other drugs, medicaments and biological substances; Z79.82 Long term (current) use of aspirin; Z79.84 Long term (current) use of oral hypoglycemic drugs; Z79.899 Other long term (current) drug therapy; Z79.890 Hormone replacement therapy; Z98.890 Other specified postprocedural states; Z85.3 Personal history of malignant neoplasm of breast; Z90.13 Acquired absence of bilateral breasts and nipples; Z90.2 Acquired absence of lung [part of]; Z90.710 Acquired absence of both cervix and uterus; Z90.89 Acquired absence of other organs; Z87.891 Personal history of nicotine dependence; Z85.118 Personal history of other malignant neoplasm of bronchus and lung; I48.91 Unspecified atrial fibrillation
CPT/HCPCS: 36415; 36416; 36600; 71045; 80048; 80202; 82550; 82570; 82805; 83036; 83605; 83880; 84145; 84300; 84439; 84481; 84484; 85025; 86141; 87040; 87081; 93005; 93010; 93306; 94640; 94660; J0282; J0456; J0692; J0696; J1650; J1815; J2272; J2919; J3370; J3490; J7030; J7050; J7070; J7120; J7512; J7620; P9047; Q0162